=== PATIENT | female | born 1960 | race Caucasian/White ===

== ENCOUNTER 2019-08-27 11:40 | Outpatient (CLI) | payer OTHER, SELFPAY ==
--- NOTE | ~2019-08-27 | US_ITS ---
EXAMINATION: US venous doppler [facility] DATE: 08/27/2019 12:27 INDICATION: Left lower limb pain TECHNIQUE: [place] scale images without and with compression and Doppler images of the left lower extrem ity veins were obtained. COMPARISON: None FINDINGS: The left common femoral vein, profunda femoral vein, femoral vein, popliteal vein, peroneal trunk, posterior tibial veins, and greater saphenous vein are patent. IMPRESSION: 1. Patent left lower extremity veins. No evidence of deep venous thrombosis. Reviewed, dictated and finalized at location A.
== END 2019-08-27 11:41 | disposition home or self-care (01) ==
PROVIDERS: PCP Family Medicine; Visit Provider Family Medicine
DX: M79.662 Pain in left lower leg (principal)
CPT/HCPCS: 93971

== ENCOUNTER 2020-02-23 16:00 | Observation (INO) | payer OTHER, SELFPAY ==
--- NOTE | ~2020-02-23 | XR_ITS ---
EXAMINATION: XR retrograde pyelo w/stent LT EXAM DATE: 02/24/2020 13:00 INDICATION: TECHNIQUE: Fluoroscopy used during XR retrograde pyelo w/stent LT performed by Dr. Kai bolton MD. The DAP for this procedure was 509 radcm2 FINDINGS: Initial image demonstrates large calcific density projecting over the left ureterovesicula r junction, which was not identified following placement of the double-J ureteral stent. The left ure ter was cannulated, injected. There is severe left-sided hydroureter and mild to moderate hydronephro sis. Correlate with procedure note. IMPRESSION: Fluoroscopy used during XR retrograde pyelo w/stent LT. Reviewed, dictated and finalized at location B. IFIED PHYSICIAN'S ASSISTANT
--- NOTE | ~2020-02-23 | CT_ITS ---
EXAMINATION: CT abdomen pelvis wo con DATE: 02/23/2020 17:07 INDICATION: Flank pain. History of stones. TECHNIQUE: Computed tomography (CT) of the abdomen and pelvis was performed without intravenous contr ast. The dose-length product was 214.49 mGy-cm. Automated exposure control and iterative reconstructi on technique were employed. COMPARISON: None. FINDINGS: Lung bases are unremarkable. No significant pleural or pericardial effusion. Heart size is normal. There is an 8 x 7 mm. Distal left ureteral stone with moderate-severe left hydroureteronephro sis. There is left perinephric edema. Bowel gas pattern nonobstructive. Bladder is decompressed. Ther e is a fat-containing umbilical hernia. No free air or free fluid. The liver, spleen, pancreas, adrenal glands and right kidney are unremarkable. No acute osseous abnor mality. IMPRESSION: 1. 8 mm distal left ureteral stone with moderate-severe hydroureteronephrosis. Reviewed, dictated and finalized at location A. RAFT REFUELLER
[2020-02-23 16:01] VITALS: BP 135/69; PULSE 90; RESP 16; TEMP 36.3; O2SAT 96
--- NOTE | 2020-02-23 16:39 | ED.BACK ---
HPI - Back Pain/Injury General Chief Complaint: Back Pain/Injury Stated Complaint: kidney stone Time Seen by Provider: 02/23/20 16:39 Source: patient Mode of arrival: ambulatory Limitations: no limitations History of Present Illness HPI Narrative: Patient is a 59-year-old female who presents for evaluation of left flank pain. Acute onset today while the patient was at work described as sharp, stabbing in nature associated with nausea, vomiting. Pain is currently colicky in nature, more severe without radiation. No associated chest pain or shortness of breath. No fever or chills. No noticeable hematuria. Patient states she does have a history of nephrolithiasis. She denies any dysuria. No upper abdominal pain. She denies recent fall or injury. Related Data Allergies Allergy/AdvReac Type Severity Reaction Status Date / Time No Known Allergies Allergy Verified 01/27/20 08:38 Review of Systems Review of Systems: Narrative: CONSTITUTIONAL: Denies fever, chills, or sweats. ENT: Denies rhinorrhea, congestion, sore throat, or otalgia. CARDIOVASCULAR: Denies chest pain, palpitations, or edema. RESPIRATORY: Denies cough or dyspnea. GASTROINTESTINAL: Denies abdominal pain, reports nausea and vomiting GENITOURINARY: Denies dysuria or hematuria. Reports left flank pain. SKIN: Denies rash or itching. MUSCULOSKELETAL: Denies back pain, joint pain, or myalgia. NEUROLOGIC: Denies headache, numbness, or weakness. [facility] Past Medical History Medical History Dyslipidemia 12/18/2017 Essential (primary) hypertension 12/18/2017 Nephrolithiasis Prediabetes Surgical History Surgical History Hx of section (~1979) 1990 [place] teeth extracted (~1981) Family History Family History Sibling , Descending artery was blocked Heart attack Other Family history of aortic aneurysm Family history of coronary artery disease Hypertension Social History Social History Smoking status: Never smoker Second hand tobacco smoke exposure: No Alcohol intake: current Substance use: never Substance use type: does not use Gender identity (if verbalized by the patient): Female Exam Narrative: Exam Narrative: GENERAL: Awake, alert, conversant, uncomfortable appearing HEAD: Normocephalic, atraumatic. EYES: PERRLA and EOMI. ENT: Nares clear, no rhinorrhea or epistaxis. Mucous membranes moist. NECK: Supple. CHEST: No respiratory distress, breathing even and non labored HEART: Regular rate, sinus rhythm ABDOMEN:Non distended, non tender, no reproducible tenderness on exam, no reproducible flank tenderness EXTREMITIES: Normal range of motion. No edema. SKIN: Warm, dry, no rash. NEURO:No focal deficits. Alert and oriented x3 Course Vital Signs Vital signs: Vital Signs Temperature 36.3 C L 02/23/20 16:01 Pulse Rate 90 02/23/20 16:01 Respiratory Rate 16 02/23/20 16:01 Blood Pressure 135/69 02/23/20 16:01 Pulse Oximetry 96 02/23/20 16:01 Temperature 36.3 C L 02/23/20 16:01 Pulse Rate 87 02/23/20 18:24 Respiratory Rate 18 02/23/20 18:24 Blood Pressure 131/72 02/23/20 18:24 Pulse Oximetry 100 02/23/20 18:24 MDM - Back Pain/Injury MDM Narrative Medical decision making narrative: Patient presented for evaluation of left flank pain, nausea and vomiting. At the end of assessment, ABCs are intact and vital signs are stable. Patient is quite uncomfortable appearing on exam, no reproducible tenderness. IV access obtained and labs are drawn. Patient was given IV fluids, antiemetic and pain medicine with some relief in her symptoms. Patient has mild leukocytosis. Creatinine is 1.1. No electrolyte derangement. Patient was some white blood cells present in the u
[2020-02-23 16:49] LABS: Basophils Percent Auto 0.3 % (0.2-1.2); Eosinophils Percent Auto 0.3 % (0-4.4); Hematocrit 36.9 % (37.0-47.0); Hemoglobin 12.4 g/dL (12.0-15.0); Immature Granulocyte Absolute 0.05 K/mm3 (0.00-0.031); Immature Granulocyte Percent A 0.4 % (0-0.5); Lymphocytes Absolute Auto 0.94 K/mm3 (0.9-3.2); Lymphocytes Percent Auto 7.9 % (18.3-44.2); Mean Corpuscular HGB Conc 33.6 g/dl (32-36); Mean Corpuscular Hemoglobin 30.1 pg (26-34); Mean Corpuscular Volume 89.6 fl (80-100); Mean Platelet Volume 10.1 fl (7.4-10.4); Monocytes Absolute Auto 0.5 K/mm3 (0.1-0.6); Monocytes Percent Auto 3.8 % (2.6-8.5); Neutrophils Absolute Auto 10.3 K/mm3 (1.3-6.7); Neutrophils Percent Auto 87.3 % (45.5-73.1); Platelet Count Result 257 k/mm3 (150-375); Red Blood Count 4.12 M/mm3 (4.2-5.4); Red Cell Distribution Width 12.3 % (11.5-14.5); White Blood Count 11.9 K/mm3 (4.5-10.0)
[2020-02-23] MEDS: SODIUM CHLORIDE 0.9% IV 1,000 ML 999 ML IV CONT (16:52)
[2020-02-23] MEDS: ONDANSETRON INJ 4 MG/2 ML VIAL IV PUSH (16:54)
[2020-02-23 16:55] LABS: Anion Gap 8 mmol/L (8-16); Blood Urea Nitrogen 28 mg/dL (7-17); Calcium 9.1 mg/dL (8.4-10.2); Carbon Dioxide 29 mmol/L (22-30); Chloride 103 mmol/L (98-107); Estimated CRCL calculation 48 ml/min; Estimated Glomerular Filt Rate 51; Glucose 167 mg/dL (65-105); Potassium 3.6 mmol/L (3.4-5.0); Sodium 140 mmol/L (137-145)
[2020-02-23] MEDS: MORPHINE SULFATE (*CRX) 4 MG/ML INJ IV PUSH ×2 (16:55→22:23)
[2020-02-23 16:56] LABS: Add Urine Microscopic? YES; Appearance Urine Clear (Clear); Bacteria Urine Trace /hpf; Bilirubin Urine Negative (Negative); Color Urine Yellow (Yellow); Glucose Urine UA Negative (Negative); Ketones Urine Negative (Negative); Leukocyte Esterase Ur Trace LEU/UL (Negative); Mucus Urine Rare /lpf; Nitrate Urine Negative (Negative); Protein Urine Negative (Negative); Squamous Epithelial Cell Urine Many /hpf (Few); Urobilinogen Urine Negative mg/dL (<2.0)
[2020-02-23 17:00] LABS: Blood Urine Negative (Negative)
[2020-02-23] MEDS: KETOROLAC 15 MG/ML VIAL (*BKC) IV PUSH (18:15)
[2020-02-23 18:24] VITALS: BP 131/72; PULSE 87; RESP 18; O2SAT 100
--- NOTE | 2020-02-23 19:53 | ADMGEN ---
This patient, Jazzmine Keyes, was admitted to Medical Room 247-. Patient/family oriented to hospital policies and general routines including ID bracelet, bed and alarms, visiting hours, pain management, procedures, bathroom and other care routines, personal items, smoking policy, room service/diet, and visiting hours. Information on how to activate the Rapid Response Team has been discussed. Patient/Family are encouraged to report perceived risks to care and to ask questions if they do not understand what they are told or what they should do.
[2020-02-23 19:58] VITALS: BP 117/67; PULSE 78; RESP 16; TEMP 36.9; O2SAT 98; BMI 26.6
[2020-02-23] MEDS: SODIUM CHLORIDE 0.9% IV 1,000 ML 125 ML IV CONT (20:15)
[2020-02-23 21:53] VITALS: BP 119/66; PULSE 67; RESP 16; TEMP 36.8; O2SAT 99
[2020-02-24] VITALS (8 sets, daily range): BP systolic 90–123; BP diastolic 51–73; PULSE 58–108; RESP 8–17; TEMP 36.2–37.1; O2SAT 95–100
[2020-02-24] MEDS: ONDANSETRON INJ 4 MG/2 ML VIAL IV PUSH (00:37)
[2020-02-24] MEDS: SODIUM CHLORIDE 0.9% IV 1,000 ML 125 ML IV CONT (04:16)
[2020-02-24 05:16] LABS: Basophils Percent Auto 0.1 % (0.2-1.2); Eosinophils Percent Auto 0.2 % (0-4.4); Hematocrit 30.7 % (37.0-47.0); Hemoglobin 9.9 g/dL (12.0-15.0); Immature Granulocyte Absolute 0.04 K/mm3 (0.00-0.031); Immature Granulocyte Percent A 0.4 % (0-0.5); Lymphocytes Percent Auto 14.5 % (18.3-44.2); Mean Corpuscular HGB Conc 32.2 g/dl (32-36); Mean Corpuscular Hemoglobin 29.4 pg (26-34); Mean Corpuscular Volume 91.1 fl (80-100); Mean Platelet Volume 10.1 fl (7.4-10.4); Monocytes Absolute Auto 0.6 K/mm3 (0.1-0.6); Monocytes Percent Auto 6.6 % (2.6-8.5); Neutrophils Percent Auto 78.2 % (45.5-73.1); Platelet Count Result 221 k/mm3 (150-375); Red Blood Count 3.37 M/mm3 (4.2-5.4); Red Cell Distribution Width 12.6 % (11.5-14.5)
[2020-02-24 05:31] LABS: Anion Gap 5 mmol/L (8-16); Blood Urea Nitrogen 29 mg/dL (7-17); Calcium 7.7 mg/dL (8.4-10.2); Carbon Dioxide 28 mmol/L (22-30); Chloride 106 mmol/L (98-107); Estimated CRCL calculation 35 ml/min; Estimated Glomerular Filt Rate 36; Glucose 177 mg/dL (65-105); Sodium 139 mmol/L (137-145)
--- NOTE | 2020-02-24 10:16 | WPDANESEPPF ---
Anes - Initial Pre Proc Eval Procedure: Operation Date: 02/24/20 12:00 Proposed Procedures p Cystoscopy, Left Retrograde Pyelogram, Left Ureteroscopy with Stone Extraction and Stent Placement - Kai Berg MD s Holmium Laser Procedure - Kai Berg MD Date/Time: 02/24/20 10:16 Surgeon: Demetri Castillo MD Pre Op Diagnosis: Left ureteral stone, renal colic Patient Data Age: 59 Gender: F Height: 1.7 m Weight: 77 kg Last Vital Signs Temp 36.7 C 02/24/20 06:00 Pulse 63 02/24/20 06:00 Resp 16 02/24/20 06:00 BP 94/55 L 02/24/20 06:00 Pulse Ox 96 02/24/20 06:00 Allergies Allergy/AdvReac Type Severity Reaction Status Date / Time No Known Allergies Allergy Verified 01/27/20 08:38 Home Medications Medication Instructions Recorded Confirmed Type atorvastatin 20 mg tablet 20 mg PO .QHS #90 tablet 01/27/20 02/23/20 Rx lisinopril 10 1 tablet PO DAILY #90 tablet 01/27/20 02/23/20 Rx mg-hydrochlorothiazide 12.5 mg tablet Laboratory Tests 02/23/20 02/23/20 02/23/20 16:33 16:33 16:33 WBC 11.9 K/mm3 H K/mm3 (4.5-10.0) RBC 4.12 M/mm3 L M/mm3 (4.2-5.4) Hgb 12.4 g/dL g/dL (12.0-15.0) Hct 36.9 % L % (37.0-47.0) MCV 89.6 fl fl (80-100) MCH 30.1 pg pg (26-34) MCHC 33.6 g/dl g/dl (32-36) RDW 12.3 % % (11.5-14.5) Plt Count 257 k/mm3 k/mm3 (150-375) MPV 10.1 fl fl (7.4-10.4) Immature Gran % (Auto) 0.4 % % (0-0.5) Neut % (Auto) 87.3 % H % (45.5-73.1) Lymph % (Auto) 7.9 % L % (18.3-44.2) [place]ward % (Auto) 3.8 % % (2.6-8.5) Eos % (Auto) 0.3 % % (0-4.4) Baso % (Auto) 0.3 % % (0.2-1.2) Lymph # (Auto) 0.94 K/mm3 K/mm3 (0.9-3.2) [place] # (Auto) 0.5 K/mm3 K/mm3 (0.1-0.6) Eos # (Auto) 0.0 K/mm3 K/mm3 (0-0.3) Baso # (Auto) 0.0 K/mm3 K/mm3 (0.0-0.1) Abs Immat Gran (auto) 0.05 K/mm3 H K/mm3 (0.00-0.031) Absolute Neuts (auto) 10.3 K/mm3 H K/mm3 (1.3-6.7) Absolute Nucleated RBC 0.0 K/mm3 K/mm3 (0.0-0.012) Nucleated RBC % 0.0 % % (0.0-0.2) Sodium 140 mmol/L mmol/L (137-145) Potassium 3.6 mmol/L mmol/L (3.4-5.0) Chloride 103 mmol/L mmol/L (98-107) Carbon Dioxide 29 mmol/L mmol/L (22-30) Anion Gap 8 mmol/L mmol/L (8-16) BUN 28 mg/dL H mg/dL (7-17) Creatinine 1.10 mg/dL H mg/dL (0.7-1.0) Estim Creat Clear Calc 48 ml/min ml/min Estimated GFR 51 L (59 - ) Glucose 167 mg/dL H mg/dL (65-105) Calcium 9.1 mg/dL mg/dL (8.4-10.2) Urine Color Yellow (Yellow) Urine Appearance Clear (Clear) Urine pH 7.0 (5.0-9.0) Ur Specific Dewitt 1.020 (1.001-1.035) Urine Protein Negative mg/dL mg/dL (Negative) Urine Glucose (UA) Negative mg/dL mg/dL (Negative) Urine Ketones Negative mg/dL mg/dL (Negative) Ur Blood (Man) Negative (Negative) Urine Nitrate Negative (Negative) Urine Bilirubin Negative (Negative) Urine Urobilinogen Negative mg/dL mg/dL (<2.0) Leukocyte Esterase Rfl Trace KAREN/UL H KAREN/UL (Negative) Urine RBC 11-20 /hpf H /hpf (0-2) Urine WBC 7-9 /hpf H /hpf Ur Squamous Epith Cells Many /hpf H /hpf (Few) Urine Bacteria Trace /hpf /hpf Urine Mucus Rare /lpf /lpf 02/24/20 02/24/20 04:58 04:58 WBC 9.0 K/mm3 K/mm3 (4.5-10.0) RBC 3.37 M/mm3 L M/mm3 (4.2-5.4) Hgb 9.9 g/dL L g/dL (12.0-15.0) Hct 30.7 % L % (37.0-47.0) MCV 91.1 fl fl (80-100) MCH 29.4 pg pg (26-34) MCHC 32.2 g/dl g/dl (32-36) RDW 12.6 % % (11.5-14.5) Plt C
--- NOTE | 2020-02-24 10:40 | PC.NURSE ---
pt to surgery via stretcher, doing well no c/o at this time
[2020-02-24] MEDS: LACTATED RINGERS 1,000 ML 30 ML IV CONT (10:54)
--- NOTE | 2020-02-24 10:59 | WPDURCON ---
Assessment and Plan Assessment and plan (1) Left ureteral calculus: Code(s): N20.1 - Calculus of ureter Status: Acute Assessment and Plan: Obtain consent: Cystoscopy, left ureteroscopy with stone extraction, possible stent placement, left retrograde pyelogram, possible holmium laser. Keep NPO. Plan to go to the OR this afternoon. (2) JUNE (acute kidney injury): Code(s): N17.9 - Acute kidney failure, unspecified Status: Acute Assessment and Plan: Secondary to obstructive stone, will likely resolve once stone is removed and stent is placed. Urology Consult Note HPI Date Seen: 02/24/20 Requesting Physician: Demetri Castillo MD Primary Care Provider: Kaitlyn Moyer MD Consult Narrative Narrative: Jazzmine Keyes is a 59 year old female who presented to the ER last night for new onset of left flank pain that radiates to the LLQ. She was at work yesterday and suddenly developed the pain, nausea and vomiting. She denies chills, fever, dysuria,frequency,urgency or hematuria. She has a history of passing one prior stone. CT scan diagnosed an 8mm left distal ureteral stone with moderate to severe hydronephrosis. WBC is 9.0, creatinine is 1.50, she is afebrile and urine culture is pending but UA/exam do not indicate infection. Review of Systems Cardiovascular: Cardiovascular: Denies chest pain Respiratory: Respiratory: Reports no additional respiratory complaints Gastrointestinal: Gastrointestinal: Reports abdominal pain, Reports nausea and Reports vomiting Genitourinary: Genitourinary: Denies hematuria, Denies dysuria, Reports pelvic pain and Reports flank pain PMFSH Past Medical History Medical History Dyslipidemia 12/18/2017 Essential (primary) hypertension 12/18/2017 Nephrolithiasis Prediabetes Surgical History Surgical History Hx of section (~1979) 1990 [place] teeth extracted (~1981) Family History Family History Sibling , Descending artery was blocked Heart attack Other Family history of aortic aneurysm Family history of coronary artery disease Hypertension Social History Social History Smoking status: Never smoker Second hand tobacco smoke exposure: No Alcohol intake: never Substance use: never Substance use type: does not use Gender identity (if verbalized by the patient): Female Sexual Orientation (if Verbalized by the Patient): Straight or Heterosexual Spiritual care concerns: No Meds Home Medications and Allergies Home Medications Medication Instructions Recorded Confirmed Type atorvastatin 20 mg tablet 20 mg PO .QHS #90 tablet 01/27/20 02/23/20 Rx lisinopril 10 1 tablet PO DAILY #90 tablet 01/27/20 02/23/20 Rx mg-hydrochlorothiazide 12.5 mg tablet Allergies Allergy/AdvReac Type Severity Reaction Status Date / Time No Known Allergies Allergy Verified 01/27/20 08:38 Vital Signs Vital Signs - 24 hr 02/23/20 16:01 02/23/20 18:24 02/23/20 19:58 Temperature 97.3 F L 98.5 F Pulse Rate 90 87 78 Respiratory Rate 16 18 16 Blood Pressure 135/69 131/72 117/67 Pulse Oximetry 96 100 98 02/23/20 21:53 02/24/20 02:00 02/24/20 06:00 Temperature 98.3 F 97.7 F 98.1 F Pulse Rate 67 58 L 63 Respiratory Rate 16 14 16 Blood Pressure 119/66 90/51 L 94/55 L Pulse Oximetry 99 96 96 02/24/20 10:50 Temperature 97.4 F L Pulse Rate 74 Respiratory Rate 16 Blood Pressure 108/54 L Pulse Oximetry 99 Exam Resp: Effort & Inspection: normal respiratory effort Cardio: Rate: regular rate GI: GI Palp: Yes Soft to palpation and Yes Tenderness to palpation present (GI) (LLQ) : General: Yes CVA tenderness on the left Extrem: General: no edema Results
--- NOTE | 2020-02-24 11:52 | WPDHPUPDATE1 ---
History and Physical Update Update Date/Time: 02/24/20 11:52 History and Physical has been reviewed, including an updated exam of the patient. There are NO changes in the patient's condition. Risks, benefits, and alternatives have been discussed and questions answered. Patient agrees to proceed with procedure. Proceed with cysto, left retrograde, left ureteroscopy, possible laser, stone extraction and stent placement.
--- NOTE | 2020-02-24 12:08 | SUR.PREOP ---
1200; ASKED DR KOCH REGARDING PREOP ANTIBIOTIC. PT WAS GIVEN ROCEPHIN ON THE FLOOR. NO ANTIBIOTICS ORDERED.
[2020-02-24] MEDS: LIDOCAINE HCL 2% GEL UROJET 10 ML PKG MUCOUS MEM (12:13)
--- NOTE | 2020-02-24 12:58 | P.OP_ITS ---
Procedure Note - Detailed Date of procedure: 02/24/20 Pre-op diagnosis: Left ureteral stone, renal colic Post-op diagnosis: same Procedure performed: Cystoscopy, left retrograde pyelogram, left ureteral dilation, left ureteroscopy with holmium laser, stone extraction, left ureteral stent placement 4.8 [place] contour. Description of procedure: Patient is taken to the operative suite and correctly identified. Once anesthesia was obtained she was placed in a dorsal lithotomy position and prepped and draped usual sterile fashion. Twenty-two [place]ib[place]ian scope inserted the the bladder there is no tumors noted. The left orifice was cannulated with a guidewire. Was difficult to get it past the level of the iliac vessels. We placed a Har[place]on over this and did a pyelogram. Extremely dilated ureter and tortuous somewhat. We advanced a angled Glidewire through the Harbeson up to the kidney. We then exchanged out for a Synergy Hub wire. Rigid ureteral scope was inserted the stone was visualized. It was too large to retrieve 1 piece. Using holmium laser fiber we fragmented into multiple small pieces and sent the largest ones for analysis. Reinspection revealed no significant residual ureteral calculi. Given the amount of hydronephrosis some manipulation we did place a 4.8 [place] contour stent with the proximal end coiled in the renal pelvis and the distal bladder. Bladder was drained 2% viscous lidocaine was inserted urethra and patient is taken recovery stable condition. She will follow up in 1-2 weeks for stent removal. Anesthesia: GLMA Surgeon: Kai Berg MD Drains: Yes Packing: No Pathology: yes Complications: No immediate complications Condition: stable Disposition: PACU
--- NOTE | 2020-02-24 13:56 | PC.NURSE ---
returned from surgery via stretcher, able to ambulate to bathroom with only a SBA
--- NOTE | 2020-03-22 15:52 | PM.DS ---
DS: Admitting Diagnosis Admitting Diagnosis Admitting Diagnosis: Left Ureteral Stone DS: Summary Hospital Course Hospital Course: Left Ureteral Stone Extraction Time Spent with Patient Time attestation: Pre-Op Diagnosis: Left Ureteral Stone Post Op Diagnosis: Left Ureteral Stone Patient was admitted from the ER d/t a left ureteral stone and uncontrolled pain on 02/23/2020. She then underwent the following procedure the next day on 02/24/2020: Cystoscopy, left retrograde pyelogram, left ureteral dilation, left ureteroscopy with holmium laser, stone extraction, left ureteral stent placement with Dr. Sofia Berg. She tolerated the procedure well, was then transferred to recovery in stable condition. She was then discharged home with a regular diet, activity as tolerated, she resumes all previous home medications including nitrofurantoin and Oxybutynin. Exam Resp: Effort & Inspection: normal respiratory effort Cardio: Rate: regular rate GI: GI Palp: Yes Soft to palpation and Yes Tenderness to palpation present (GI) : General: Yes CVA tenderness on the left Extrem: General: no edema DS: Data Data Completed and Pending Completed studies during hospitalization: Pending at discharge 02/24/20 12:28 Surgical [PTH] Routine Discharge Plan Discharge Attending physician on discharge: Kai Berg Consulting providers: Edouard Crespo ; Navid Santillan ; Clara Del Real ; Kai Berg Discharging Clinician: Clara Del Real Anticipated Discharge Date/Time: 02/24/20 15:19 Patient Disposition: Home, Self-Care Activity: july shower Diet: as tolerated Discharge Instructions: Call the office to schedule a stent removal in 1-[address] Berg. Call the office or go to the ER if a fever of >102 develops, or symptoms of a UTI develop. Bloody, cloudy urine is expected with a stent in as well as some discomfort from the stent intermittently. Ok to take Tylenol or Ibuprofen for pain PRN with the Oxybutynin if both are needed. Patient Instructions: Antibiotic Form Stand Alone Forms: General Discharge Information Follow-up/Referrals: Kai Berg MD [Physician] - Discharge Medications: New oxybutynin chloride 5 mg tablet 5 mg PO TID Qty: 60 RF: 0 nitrofurantoin macrocrystal 100 mg capsule 100 mg PO Q12H Qty: 14 RF: 0 Continued atorvastatin 20 mg tablet 20 mg PO .QHS Qty: 90 RF: 3 lisinopril-hydrochlorothiazide 10-12.5 mg tablet 1 tablet PO DAILY Qty: 90 RF: 3 Date of admission: 02/23/20 18:27 Primary Care Provider: Kurt Moyer Admitting Provider: Demetri Castillo Attending physician on admission: Demetri Castillo Condition: Stable
== END 2020-02-24 17:25 | disposition home or self-care (01) ==
LOC: ANHED 18:30 → ANH2MED 19:30
PROVIDERS: Emergency Medicine; Urology; Admitting Provider Urology; Emergency Provider Emergency Medicine; PCP Family Medicine; Visit Provider Urology
PROC: (CPT 52352; principal; 2020-02-24 12:00)
PROC: (CPT 52356; 2020-02-24 12:00)
DX: N13.2 Hydronephrosis with renal and ureteral calculous obstruction (principal); N17.9 Acute kidney failure, unspecified; I10 Essential (primary) hypertension; E78.5 Hyperlipidemia, unspecified; R73.03 Prediabetes
CPT/HCPCS: 52356; 36415; 74176; 74420; 80048; 81001; 82365; 85025; 87086; 87088; 88300; 96361; 96365; 96367; 96374; 96375; 96376; 99285; C1758; C1769; G0378; J0131; J0696; J1100; J1885; J2270; J2405; J2704; J7030; J7120; Q9966

== ENCOUNTER 2020-11-03 18:49 | Observation (INO) | payer OTHER, SELFPAY ==
[2020-11-03] VITALS (16 sets, daily range): BP systolic 113–158; BP diastolic 65–101; PULSE 81–122; RESP 12–21; TEMP 36.6; O2SAT 94–98
--- NOTE | ~2020-11-03 | CT_ITS ---
EXAMINATION: CT soft tissue neck wo con EXAM DATE: 11/04/2020 08:43 INDICATION: Angioedema, Large Tonsils. TECHNIQUE: Spiral CT of the neck was performed without contrast. Axial, coronal and sagittal images were reviewed. The dose-length product (DLP) for this examination was 498.18 mGy-cm. The exposure was tailored according to patient size (auto mA exposure control), and iterative reconstruction (ASIR ) was used as additional dose reduction technique. There is no prior study for comparison. FINDINGS: Epiglottis is normal in thickness. The thyroid gland is unremarkable. The submandibular and parotid glands are symmetric. There is no cervical lymphadenopathy. There are no masses identi fied. The superior mediastinum is unremarkable. The airway is unremarkable. Parapharyngeal and pre-glottic fat planes are preserved. Limited evaluation of cervical vessels on this noncontrast s tudy. The orbits are unremarkable. Visualized sinuses and mastoid air cells are well aerated. L vania apices unremarkable. There is moderate midcervical spondylosis. IMPRESSION: Unremarkable CT neck examination. Reviewed, dictated and finalized at location B.
[2020-11-03] MEDS: methylPREDNISolone SOD SUCC 125 MG VIAL IV PUSH (19:03)
[2020-11-03] MEDS: FAMOTIDINE 20 MG/2 ML VIAL 40 MG IV PUSH (19:04)
[2020-11-03] MEDS: SODIUM CHLORIDE 0.9% IV 1,000 ML 150 ML IV CONT (19:05)
--- NOTE | 2020-11-03 21:36 | ED.GENADULT ---
HPI - General Adult General Chief complaint: Dental/Oral Stated complaint: swollen tongue Time Seen by Provider: 11/03/20 18:55 Source: patient Mode of arrival: EMS Limitations: no limitations History of Present Illness HPI narrative: 60-year-old with a history of hypertension on lisinopril for past 10 years here with complaints of tongue and lip swelling. Patient states that it started about 12:00 this afternoon patient states that she went to urgent care and was later referred here. Patient did receive epinephrine and Benadryl at urgent care. Upon arrival patient denies any shortness of breath still complains of tongue swelling. Onset (ago): hour(s) (5) Location: mouth (Tongue swelling) Exacerbating factors: none Associated symptoms: denies other symptoms Treatments prior to arrival: other (Benadryl and epinephrine) Related Data Allergies Allergy/AdvReac Type Severity Reaction Status Date / Time No Known Allergies Allergy Verified 06/30/20 11:01 Review of Systems Review of Systems: All systems reviewed & are unremarkable except as noted in HPI and below Constitutional: Constitutional: Reports no additional constitutional complaints Eyes: Eyes: Reports no additional eye complaints ENT: Reports as per HPI Cardiovascular: Cardiovascular: Reports no additional cardiovascular complaints Respiratory: Respiratory: Reports no additional respiratory complaints Gastrointestinal: Gastrointestinal: Reports no additional gastrointestinal complaints Musculoskeletal: Musculoskeletal: Reports no additional musculoskeletal complaints Integumentary/Breasts: Skin/Breast: Reports system reviewed and no additional complaints, except as docu Neurologic: Reports system reviewed and no additional complaints, except as documented Psychiatric: Psychiatric: Reports no additional psychiatric complaints Endocrine: Endocrine: Reports no additional endocrine complaints [facility] Past Medical History Medical History Dyslipidemia 12/18/2017 Essential (primary) hypertension 12/18/2017 Left ureteral calculus 02/2020 Nephrolithiasis Prediabetes Surgical History Surgical History History of cystoscopy 02/21 - for left ureteral stone extraction Hx of section (~1979) 1990 [place] teeth extracted (~1981) Family History Family History Sibling , Descending artery was blocked Heart attack Other Family history of aortic aneurysm Family history of coronary artery disease Hypertension Social History Social History Smoking status: Never smoker Second hand tobacco smoke exposure: No Alcohol intake: never Alcohol use details: consumes 1 glass of wine weekly Substance use: never Substance use type: does not use Gender identity (if verbalized by the patient): Female Sexual Orientation (if Verbalized by the Patient): Straight or Heterosexual Spiritual care concerns: No Exam Narrative: GENERAL: Well-appearing, well-nourished, and in no acute distress. HEAD: Normocephalic, atraumatic. EYES: PERRLA and EOMI. ENT: Nares clear, tongue is markedly swollen no obvious drooling at this time she is able to maintain her airway and secretions. NECK: Supple. CHEST: Clear to auscultation. No respiratory distress. HEART: Regular rate and rhythm. No murmur heard. Normal peripheral pulses. ABDOMEN: Soft, nontender, nondistended, normal active bowel sounds. EXTREMITIES: Normal range of motion. No edema. SKIN: Warm, dry, no rash. NEURO: No focal deficits. Alert and oriented x3. PSYCH: Normal mood and affect. Course Course Emergency Course: I have given IV Pepcid and Solu-Medrol here in the ER observed her for approximately 4 hours her swelling has slightly improved she is now able to talk. No respi
[2020-11-03 21:37] LABS: Basophils Absolute Auto 0.1 K/mm3 (0.0-0.1); Basophils Percent Auto 0.4 % (0.2-1.2); Eosinophils Percent Auto 0.1 % (0-4.4); Hematocrit 40.5 % (37.0-47.0); Hemoglobin 13.5 g/dL (12.0-15.0); Immature Granulocyte Absolute 0.15 K/mm3 (0.00-0.031); Immature Granulocyte Percent A 0.8 % (0-0.5); Lymphocytes Percent Auto 6.1 % (18.3-44.2); Mean Corpuscular HGB Conc 33.3 g/dl (32-36); Mean Corpuscular Hemoglobin 29.7 pg (26-34); Mean Corpuscular Volume 89.2 fl (80-100); Mean Platelet Volume 9.6 fl (7.4-10.4); Monocytes Absolute Auto 0.3 K/mm3 (0.1-0.6); Monocytes Percent Auto 1.6 % (2.6-8.5); Neutrophils Absolute Auto 16.3 K/mm3 (1.3-6.7); Platelet Count Result 260 k/mm3 (150-375); Red Blood Count 4.54 M/mm3 (4.2-5.4); Red Cell Distribution Width 12.4 % (11.5-14.5); White Blood Count 17.9 K/mm3 (4.5-10.0)
[2020-11-03 21:46] LABS: Anion Gap 19 mmol/L (8-16); Blood Urea Nitrogen 20 mg/dL (7-17); Calcium 9.1 mg/dL (8.4-10.2); Carbon Dioxide 20 mmol/L (22-30); Chloride 101 mmol/L (98-107); Estimated Glomerular Filt Rate > 60; Glucose 301 mg/dL (65-110); Potassium 3.6 mmol/L (3.4-5.0); Sodium 140 mmol/L (137-145)
--- NOTE | 2020-11-03 21:58 | PM.IMHP ---
H&P: HPI History of Present Illness Date/Time: 11/03/20 21:58 Chief Complaint: TONGUE SWELLING Narrative: THIS IS A 60-YEAR-OLD FEMALE WITH PAST MEDICAL HISTORY SIGNIFICANT FOR DYSLIPIDEMIA, HYPERTENSION. PATIENT PRESENTED TODAY TO THE EMERGENCY ROOM AFTER SHE WAS AT WORK AND NOTICED THAT HE WAS DIFFICULT FOR HER TO SPEAK NOTICEDS HER TONGUE SHOWS WAS SWOLLEN AND WENT TO THE URGENT CARE WHILE THERE SHE WAS SEEN AND EVALUATED AND EMS WAS CALLED AND PATIENT WAS RUSHED TO THE EMERGENCY ROOM. PATIENT TAKES LISINOPRIL PART OF HER HOME MEDICATIONS. SHE HAS BEEN IN HER USUAL STATE OF HEALTH IS THE 1ST TIME SOMETHING LIKE THIS HAPPENS TO HER SHE DENIES ANY SHORTNESS OF BREATH ,COUGH, DYSPHAGIA, ODYNOPHAGIA, DIFFICULTY HANDLING SECRETIONS, WHEEZING ,SPUTUM PRODUCTION, CHEST PAIN ,PALPITATIONS, LIGHTHEADEDNESS, DIZZINESS, VISION CHANGES. PRELIMINARY WORKUP WAS ESSENTIALLY NONREVEALING. AT THE TIME OF MY VISIT PATIENT NOTED THAT HER TONGUE SWELLING AND HER SPEECH WERE MUCH IMPROVED. Review of Systems Review of Systems: TONGUE SWELLING Constitutional: Constitutional: Denies chills, Denies fatigue and Denies fever(s) Eyes: Eyes: Denies change in vision ENT: Denies dysphagia, Denies nasal congestion, Denies nasal discharge, Denies nasal obstruction and Denies odynophagia Cardiovascular: Cardiovascular: Denies chest pain, Denies irregular heart rhythm, Denies claudication, Denies leg edema, Denies lightheadedness, Denies radiating jaw, neck or arm pain, Denies palpitations and Denies dyspnea on exertion Respiratory: Respiratory: Denies cough and Denies dyspnea Gastrointestinal: Gastrointestinal: Denies abdominal pain, Denies dyspepsia, Denies heartburn, Denies nausea and Denies vomiting Genitourinary: Genitourinary: Reports no additional female genitourinary complaints Musculoskeletal: Musculoskeletal: Reports no additional musculoskeletal complaints Integumentary/Breasts: Skin/Breast: Reports system reviewed and no additional complaints, except as docu Neurologic: Reports system reviewed and no additional complaints, except as documented Psychiatric: Psychiatric: Reports no additional psychiatric complaints Endocrine: Endocrine: Reports no additional endocrine complaints Hematologic/Lymphatic: Hematologic/Lymphatic: Reports no additional hematologic/lymphatic complaints Allergic/Immunologic: Allergic/Immunologic: Reports no additional allergic/immunologic complaints PMFSH Past Medical History Medical History Dyslipidemia 12/18/2017 Essential (primary) hypertension 12/18/2017 Left ureteral calculus 02/2020 Nephrolithiasis Prediabetes Surgical History Surgical History History of cystoscopy 02/21 - for left ureteral stone extraction Hx of section (~1979) 1989 [place] teeth extracted (~1981) Family History Family History (Updated 11/04/20 @ 00:28 by Tosha Gautam RN) Sibling , Descending artery was blocked Heart attack Family history of coronary artery disease Hypertension Mother Family history of aortic aneurysm Dementia Father FH: CABG (coronary artery bypass surgery) Social History Social History Smoking status: Never smoker Second hand tobacco smoke exposure: No Alcohol intake: never Alcohol use details: consumes 1 glass of wine weekly Substance use: never Substance use type: does not use Gender identity (if verbalized by the patient): Female Sexual Orientation (if Verbalized by the Patient): Straight or Heterosexual Spiritual care concerns: No Meds Home Medications and Allergies Home Medications Medication Instructions Recorded Confirmed Type atorvastatin 20 mg tablet 20 mg PO QHS #90 tablet 06/30/20 11/04/20 Rx lisinopril 10 1 tablet PO DAILY #90 tablet 06/30/20 11/04/20 Rx mg-hydrochlorothi
--- NOTE | 2020-11-03 23:05 | PC.NURSE ---
Swelling has decreased, patient able to speak in full sentences and reports it feels much better.
--- NOTE | 2020-11-03 23:43 | PC.NURSE ---
2316 report received from LOYD Chen.
[2020-11-04] VITALS: BP 110/62; PULSE 88; RESP 17; TEMP 36.9; O2SAT 95
[2020-11-04 00:02] VITALS: PULSE 88; RESP 14; O2SAT 97
--- NOTE | 2020-11-04 00:02 | ADMGEN ---
This patient, Jazzmine Keyes, was admitted to Intensive Care Unit-12 on 11/03/20 at 2345. Patient/family oriented to hospital policies and general routines including ID bracelet, bed and alarms, visiting hours, pain management, procedures, bathroom and other care routines, personal items, smoking policy, room service/diet, and visiting hours. Information on how to activate the Rapid Response Team has been discussed. Patient/Family are encouraged to report perceived risks to care and to ask questions if they do not understand what they are told or what they should do.
[2020-11-04 00:04] VITALS: BMI 22.6
[2020-11-04] MEDS: methylPREDNISolone SOD SUCC 125 MG VIAL 60 MG IV PUSH ×2 (00:47→06:18)
[2020-11-04] MEDS: diphenhydrAMINE HCl INJ 50 MG/ML VIAL 25 MG IV PUSH ×2 (00:47→06:18)
[2020-11-04 02:00] VITALS: BP 105/62; PULSE 78; RESP 13; O2SAT 92
[2020-11-04 04:00] VITALS: BP 109/65; PULSE 68; PULSE 73; RESP 14; TEMP 36.5; O2SAT 94
[2020-11-04] MEDS: SODIUM CHLORIDE 0.9% IV 1,000 ML 75 ML IV CONT (04:13)
[2020-11-04 06:00] VITALS: BP 106/65; PULSE 74; RESP 13; O2SAT 94
[2020-11-04 08:00] VITALS: BP 126/78; PULSE 100; PULSE 108; RESP 16; TEMP 36.5; O2SAT 98
[2020-11-04] MEDS: FAMOTIDINE 20 MG/2 ML VIAL IV PUSH (08:04)
--- NOTE | 2020-11-04 10:16 | WPDCNINT ---
Assessment and Plan Assessment and plan (1) Angioedema: Qualifiers: Encounter type: initial encounter Qualified Code(s): T78.3XXA - Angioneurotic edema, initial encounter Code(s): T78.3XXA - Angioneurotic edema, initial encounter Status: Acute Assessment and Plan: Secondary to lisinopril patient was admitted to ICU for airway monitoring she was treated with steroids Pepcid and Benadryl symptoms improved and patient appears to be at baseline CT soft tissue neck was done this morning which was unremarkable DC steroids Pepcid and Benadryl at this time (2) Essential (primary) hypertension: Code(s): I10 - Essential (primary) hypertension Status: Chronic Assessment and Plan: monitor and treat accordingly currently she is off of antihypertensives (3) Dyslipidemia: Code(s): E78.5 - Hyperlipidemia, unspecified Status: Chronic Assessment and Plan: resume Lipitor Additional Plan DVT prophylaxis - SCDs Nutrition - start regular diet transfer out of ICU today 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 Patient has been on lisinopril for close to 10 years she states that she has had at least 5 episodes where her trunk got sold up but resolved spontaneously and she never sought any treatment. Yesterday afternoon at work she started noticing swelling of right side of her tongue. This swelling extended to left side and she felt her throat was also swollen. Her voice was hoarse and she had some drooling. He did not had any shortness of breath or respiratory distress. Patient wentto urgent care where she was given epinephrine and transferred to [place] ER. Patient was given steroids Benadryl and Pepcid admitted to ICU for further monitoring. Lisinopril was discontinued this morning patient states she feels fine and her symptoms have completely resolved. She states her tongue and lip swelling is completely gone. She ate diet this morning without any difficulty. Her voice is back to baseline. And no drooling at this time. she denies any dental pain or sore throat. Fever shortness of breath or cough. He has received COVID vaccine. All other systems were reviewed and were negative Review of Systems Review of Systems: All systems reviewed & are unremarkable except as noted in HPI and below (HPI) PMFSH Past Medical History Medical History Dyslipidemia 12/18/2017 Essential (primary) hypertension 12/18/2017 Left ureteral calculus 02/2020 Nephrolithiasis Prediabetes Surgical History Surgical History History of cystoscopy 02/21 - for left ureteral stone extraction Hx of section (~1979) 1989 [place] teeth extracted (~1981) Family History Family History Sibling , Descending artery was blocked Heart attack Family history of coronary artery disease Hypertension Mother Family history of aortic aneurysm Dementia Father FH: CABG (coronary artery bypass surgery) Social History Social History Smoking status: Never smoker Second hand tobacco smoke exposure: No Alcohol intake: never Alcohol use details: consumes 1 glass of wine weekly Substance use: never Substance use type: does not use Gender identity (if verbalized by the patient): Female Sexual Orientation (if Verbalized by the Patient): Straight or Heterosexual Spiritual care concerns: No Meds Home Medications and Allergies Home Medications Medication Instructions Recorded Confirmed Type atorvastatin 20 mg tablet 20 mg PO QHS #90 tablet 06/30/20 11/04/20 Rx lisinopril 10 1 tablet PO SETH
--- NOTE | 2020-11-04 12:15 | PM.DS ---
DS: Admitting Diagnosis Admitting Diagnosis Angioedema DS: Discharge Diagnosis Discharge Diagnosis (1) Angioedema: Qualifiers: Encounter type: initial encounter Qualified Code(s): T78.3XXA - Angioneurotic edema, initial encounter Code(s): T78.3XXA - Angioneurotic edema, initial encounter Status: Acute Assessment and Plan: Angioedema presumed to be secondary to lisinopril The patient was admitted to ICU for airway monitoring; she was treated with steroids Pepcid and Benadryl. Her symptoms promptly improved and patient appears to be at baseline. CT soft tissue neck was done this morning which was unremarkable DC steroids Pepcid and Benadryl at this time (2) Essential (primary) hypertension: Code(s): I10 - Essential (primary) hypertension Status: Chronic Assessment and Plan: Patient was monitored and treat accordingly; while inpatient she she was maitained off of antihypertensive. She will be discharged on low dose diuretics and low dose calcium channel blockers as she will resume a regular diet. (3) Dyslipidemia: Code(s): E78.5 - Hyperlipidemia, unspecified Status: Chronic Assessment and Plan: resume Lipitor DS: Summary Hospital Course Hospital Course: This is a 60-year old lady with a past medical history including but not limited to HTN, dyslipidemia, who preseented to the emergency department after experiending difficulty speaking at work. Her tongue was swollen; she went to urgent care and was transferred to the ED by EMS. Patient takes lisinopril for years. On arrival there was no shotness of breath, difficulty swallowing. She was admitted to ICU for airway monitoring. She was started on benadryl and steroids. A CT scan of the neck was unremarkable. She was discharged home with instructions to avoid lisinopril and all ACEI in the future. Time Spent with Patient Time attestation: Total time spent providing and/or coordinating discharge services: 30 min/ Exam Narrative: GENERAL: The patient is alert and oriented, in no apparent distress. She is pleasant and conversant in full sentences. HEENT: Pupils are equally round and briskly reactive to light. Extraocular muscles are intact. Oral mucous membranes are moist without lesions. No tonsil swelling. NECK: The patient has no noted JVD. No adenopathy is appreciated. CHEST/LUNGS: Lungs are clear bilaterally without rhonchi, rales, or wheezes. There is no subcutaneous air appreciated. There is no tenderness to the chest wall. HEART: The patient has a regular rate and rhythm. No murmurs, rubs, or gallops are appreciated. Distal pulses are 2+. No carotid bruits appreciated. ABDOMEN: The patient?s abdomen is soft, nontender, and nondistended. Bowel sounds are positive. No organomegaly is appreciated. No masses are appreciated. EXTREMITIES: The patient has no peripheral edema. There is no focal long bone tenderness or deformity. SKIN: The patient?s skin is warm and dry, without rashes or lesions. PSYCHIATRIC: The patient has normal mental status and has an appropriate affect. NEUROLOGIC: The patient has 5/5 strength to the upper and lower extremities bilaterally. Sensation is intact throughout. Gait is within normal limits. Deep tendon reflexes are 2+ in all four extremities. There are no deficits to the cranial nerves. DS: Data Data Completed and Pending Labs on day of discharge: Labs from last 24 hours 11/03/20 11/03/20 21:32 21:32 WBC 17.9 H RBC 4.54 Hgb 13.5 D Hct 40.5 MCV 89.2 MCH 29.7 MCHC 33.3 RDW 12.4 Plt Count 260 MPV 9.6 Immature Gran % (Auto) 0.8 H Neut % (Auto) 91.0 H Lymph % (Auto) 6.1 L Clay % (Auto) 1.6 L Eos % (Auto) 0.1 Baso % (Auto) 0.4 Lymph # (Auto) 1.10 Clay # (Auto) 0.3 Eos # (Auto) 0.0 Baso # (Auto) 0.1 Abs Immat Gran (auto) 0.15 H Absolute Neuts (auto) 16.3 H Absolute Nucleated RBC 0.0 Nucleated RBC % 0.0 Sodium 140 Potassium 3.6
== END 2020-11-04 12:28 | disposition home or self-care (01) ==
LOC: ANHED 21:40 → ANHICU 11-04 04:38
PROVIDERS: Admitting Provider Internal Medicine; Emergency Provider Family Medicine; PCP Family Medicine; Visit Provider Internal Medicine
DX: T78.3XXA Angioneurotic edema, initial encounter (principal); I10 Essential (primary) hypertension; E78.5 Hyperlipidemia, unspecified; R73.03 Prediabetes
CPT/HCPCS: 36415; 70490; 80048; 85025; 96361; 96374; 96375; 96376; 99285; G0378; J1200; J2930; J7030

== ENCOUNTER 2021-01-08 08:04 | Emergency (ER) | payer OTHER, SELFPAY ==
[2021-01-08 08:11] VITALS: BP 162/101; PULSE 101; RESP 16; O2SAT 97
[2021-01-08] MEDS: methylPREDNISolone SOD SUCC 125 MG VIAL IV PUSH (08:26)
[2021-01-08] MEDS: FAMOTIDINE 20 MG/2 ML VIAL IV PUSH (08:26)
[2021-01-08] MEDS: diphenhydrAMINE HCl INJ 50 MG/ML VIAL 25 MG IV PUSH (08:26)
--- NOTE | 2021-01-08 08:32 | ED.ALLEREA ---
HPI - Allergic Reaction General Chief complaint: Allergic Reaction Stated complaint: allergic rxn Time Seen by Provider: 01/08/21 08:09 History of Present Illness HPI narrative: Patient is a 6-year-old female who presents ER with allergic reaction. Reports last night after eating dinner she started to develop swelling of her tongue and lips. It has stayed the same since then and has not worsened. Feels a little bit of pressure when she swallows. She had eaten baked chicken with a baked potato. She also had a [employer] Halloween candy containing peanut butter and chocolate. She has no difficulty breathing but has some slurred speech due to swelling of her tongue. This happened to her in the last year when she was on her lisinopril. She denies taking any new medications or any lisinopril. She does take atorvastatin but does not think that this was related. Patient has not taken any antihistamines or other medications today. Related Data Home Medications Medication Instructions Recorded Confirmed [facility]-3 Gummy Fish 2 tablet PO DAILY 11/04/20 12/13/20 ginkgo biloba-Panax ginseng rt 1 cap PO DAILY 11/04/20 12/13/20 lutein 20 mg capsule 20 mg PO DAILY 12/13/20 12/13/20 Allergies Allergy/AdvReac Type Severity Reaction Status Date / Time hydrochlorothiazide Allergy Swelling Verified 01/08/21 08:18 of Lip/Tongue/Throat lisinopril Allergy Swelling Verified 12/13/20 15:29 of Lip/Tongue/Throat Review of Systems Review of Systems: All systems reviewed & are unremarkable except as noted in HPI and below Constitutional: Constitutional: Denies chills, Denies fever(s) and Denies weakness ENT: Denies nasal congestion and Denies sore throat Comments: Tongue swelling Cardiovascular: Cardiovascular: Denies chest pain, Denies rapid heart rate and Denies radiating jaw, neck or arm pain Respiratory: Respiratory: Denies cough, Denies dyspnea and Denies wheezing Gastrointestinal: Gastrointestinal: Denies nausea and Denies vomiting Integumentary/Breasts: Skin/Breast: Denies pruritus, Denies erythema and Denies rash PMFSH Past Medical History Medical History Dyslipidemia 12/18/2017 Essential (primary) hypertension 12/18/2017 Left ureteral calculus 02/2020 Nephrolithiasis Prediabetes Surgical History Surgical History History of cystoscopy 02/21 - for left ureteral stone extraction Hx of section (~1979) 1990 [place] teeth extracted (~1981) Family History Family History Sibling , Descending artery was blocked Heart attack Family history of coronary artery disease Hypertension Mother Family history of aortic aneurysm Dementia Father FH: CABG (coronary artery bypass surgery) Social History Social History Smoking status: Never smoker Second hand tobacco smoke exposure: No Alcohol intake: never Alcohol use details: consumes 1 glass of wine weekly Substance use: never Substance use type: does not use Gender identity (if verbalized by the patient): Female Sexual Orientation (if Verbalized by the Patient): Straight or Heterosexual Spiritual care concerns: No Exam Narrative: GENERAL: Well-appearing, well-nourished, and in no acute distress. HEAD: Normocephalic, atraumatic. EYES: PERRL and EOMI. ENT: Mucous membranes moist. Angioedema of the tongue and upper and lower lips. Lips are mild, tongue is mild to moderate and is not protruding. Patient is a Mallampati 3 and uvula is nonedematous. NECK: Supple. CHEST: Clear to auscultation. No respiratory distress. HEART: Regular rate and rhythm. No murmur heard. Normal peripheral pulses. ABDOMEN: Soft, nontender, nondistended. EXTREMITIES: Normal range of motion. No edema
[2021-01-08] MEDS: EPINEPHrine HCL INJ 1 MG/ML AMPUL 0.3 MG IM (08:36)
[2021-01-08 08:40] LABS: Basophils Percent Auto 0.5 % (0.2-1.2); Eosinophils Absolute Auto 0.1 K/mm3 (0-0.3); Eosinophils Percent Auto 1.9 % (0-4.4); Hemoglobin 13.5 g/dL (12.0-15.0); Immature Granulocyte Absolute 0.08 K/mm3 (0.00-0.031); Immature Granulocyte Percent A 1.1 % (0-0.5); Lymphocytes Absolute Auto 1.46 K/mm3 (0.9-3.2); Lymphocytes Percent Auto 19.8 % (18.3-44.2); Mean Corpuscular HGB Conc 33.8 g/dl (32-36); Mean Corpuscular Hemoglobin 29.5 pg (26-34); Mean Corpuscular Volume 87.5 fl (80-100); Mean Platelet Volume 9.6 fl (7.4-10.4); Monocytes Absolute Auto 0.4 K/mm3 (0.1-0.6); Neutrophils Absolute Auto 5.2 K/mm3 (1.3-6.7); Neutrophils Percent Auto 70.7 % (45.5-73.1); Platelet Count Result 236 k/mm3 (150-375); Red Blood Count 4.57 M/mm3 (4.2-5.4); White Blood Count 7.4 K/mm3 (4.5-10.0)
[2021-01-08 08:52] LABS: Alanine Aminotransferase 18 U/L (4-35); Albumin Level 4.2 g/dL (3.5-5.1); Alkaline Phosphatase 114 U/L (38-126); Anion Gap 8 mmol/L (8-16); Aspartate Amino Transferase 32 U/L (14-36); Bilirubin,Total 0.8 mg/dL (0.2-1.3); Blood Urea Nitrogen 16 mg/dL (7-17); Calcium 9.4 mg/dL (8.4-10.2); Carbon Dioxide 24 mmol/L (22-30); Chloride 107 mmol/L (98-107); Estimated CRCL calculation 63 ml/min; Estimated Glomerular Filt Rate > 60; Glucose 151 mg/dL (65-110); Potassium 4.1 mmol/L (3.4-5.0); Sodium 139 mmol/L (137-145)
[2021-01-08 10:14] VITALS: BP 130/76; PULSE 85; RESP 18; O2SAT 98
[2021-01-08 11:42] VITALS: BP 132/80; PULSE 81; RESP 18; O2SAT 97
== END 2021-01-08 11:40 | disposition home or self-care (01) ==
PROVIDERS: Emergency Provider Emergency Medicine; PCP Family Medicine
DX: T78.3XXA Angioneurotic edema, initial encounter (principal); E78.5 Hyperlipidemia, unspecified; I10 Essential (primary) hypertension; Z87.442 Personal history of urinary calculi; R73.03 Prediabetes
CPT/HCPCS: 36415; 80053; 85025; 96372; 96374; 96375; 99284; J0171; J1200; J2930

== ENCOUNTER 2024-03-03 00:18 | Day surgery (SDC) | payer OTHER, SELFPAY ==
--- NOTE | 2024-03-03 08:23 | P.HP_ITS ---
H&P: HPI History of Present Illness Date/Time: 03/03/24 08:23 Chief Complaint: postmenopausal bleeding Narrative: Patient is a 63 year old female who presents for hysteroscopy, polypectomy and D&C indicated for postmenopausal bleeding and suspected endometrial polyp. She reports a 2-3 month hx of irregular bleeding after amenorrhea x10 years. Pelvic US demonstrated two vascular pedicles, one inside endometrial cavity and one in the cervical canal, suspicious for polyps. Risks, benefits, and alternatives to the procedure were discussed with the patient who voices understanding and would like to proceed. Review of Systems Review of Systems: All systems reviewed & are unremarkable except as noted in HPI and below PMFSH Past Medical History Medical History Left ureteral calculus 02/2020 Nephrolithiasis Prediabetes Essential (primary) hypertension 12/18/2017 Dyslipidemia 12/18/2017 Surgical History Surgical History History of cystoscopy 02/21 - for left ureteral stone extraction [place] teeth extracted (~1981) Hx of section (~1979) 1989 Family History Family History Sibling , Descending artery was blocked Heart attack Family history of coronary artery disease Hypertension Mother Family history of aortic aneurysm Dementia Father FH: CABG (coronary artery bypass surgery) Social History Social History Smoking status: Never smoker Second hand tobacco smoke exposure: No Alcohol intake: never Alcohol use details: consumes 1 glass of wine weekly Substance use: never Substance use type: does not use Gender identity (if verbalized by the patient): Female Sexual Orientation (if Verbalized by the Patient): Straight or Heterosexual Spiritual care concerns: No Meds Home Medications and Allergies Home Medications ?Medication ?Instructions ?Recorded ?Confirmed ?Type ginkgo biloba extract-Panax 1 cap PO DAILY 11/04/20 12/13/20 History ginseng root extract 60 mg-100 mg capsule omega 3 35 mg-dha 25 mg-epa 5 2 tablet PO DAILY 11/04/20 12/13/20 History mg-fish oil 113.5 mg chewable tablet ([facility] [place]-3 Gummy Fish) lutein 20 mg capsule 20 mg PO DAILY 12/13/20 12/13/20 History diphenhydramine HCl 25 mg tablet 25 mg PO QID allergic reaction #20 01/08/21 Rx (Benadryl Allergy) tabs famotidine 20 mg tablet (Pepcid) 20 mg PO BID #14 tabs 01/08/21 Rx prednisone 50 mg tablet 50 mg PO DAILY #7 tabs 01/08/21 Rx Allergies Allergy/AdvReac Type Severity Reaction Status Date / Time hydrochlorothiazide Allergy Swelling Verified 01/13/21 10:30 of Lip/Tongue/Throat lisinopril Allergy Swelling Verified 01/13/21 10:30 of Lip/Tongue/Throat Exam Const: General: comfortable and no acute distress HENMT: Mouth: Yes moist mucous membranes Eyes: General: appearance normal, both eyes and all related structures Resp: Effort & Inspection: normal respiratory effort Cardio: Rate: regular rate Extrem: General: normal to inspection Psych: Mental Status: mental status grossly normal Assessment and Plan Assessment and plan (1) Postmenopausal bleeding: Code(s): N95.0 - Postmenopausal bleeding Status: Acute Assessment and Plan: - 2-3 month hx of irregular bleeding after 10 years of amenorrhea - pelvic US demonstrates two possible polyps, one endometrial and one cervical - risks and benefits of procedure discussed with patient who voices understanding - will proceed with hysteroscopy, D&C and polypectomy
--- NOTE | 2024-03-03 08:44 | P.PNAN_ITS ---
Anes - Initial Pre Proc Eval Procedure: Operation Date: 03/03/24 09:30 Proposed Procedures p Hysteroscopy with Biopsy Endometrium - Ferny Allen MD Date/Time: 03/03/24 08:44 Surgeon: Ferny Allen MD Pre Op Diagnosis: Endometrial Polyp Patient Data Age: 63 Gender: F Height: Weight: Allergies Allergy/AdvReac Type Severity Reaction Status Date / Time hydrochlorothiazide Allergy Swelling Verified 03/03/24 08:48 of Lip/Tongue/Throat lisinopril Allergy Swelling Verified 03/03/24 08:48 of Lip/Tongue/Throat Home Medications ?Medication ?Instructions ?Recorded ?Confirmed ?Type ginkgo biloba extract-Panax 1 cap PO DAILY 11/04/20 03/03/24 History ginseng root extract 60 mg-100 mg capsule omega 3 35 mg-dha 25 mg-epa 5 2 tablet PO DAILY 11/04/20 03/03/24 History mg-fish oil 113.5 mg chewable tablet ([facility] [place]-3 Gummy Fish) lutein 20 mg capsule 20 mg PO DAILY 12/13/20 03/03/24 History atorvastatin 40 mg tablet 40 mg PO QPM 03/03/24 03/03/24 History chlorthalidone 25 mg tablet 25 mg PO DAILY 03/03/24 03/03/24 History Patient hx anesthesia problems: none Family hx anesthesia problems: none Results Review: All pre-operative results and documents have been reviewed as part of the pre- operative evaluation. [facility] Past Medical History Medical History Left ureteral calculus 02/2020 Nephrolithiasis Prediabetes Essential (primary) hypertension 12/18/2017 Dyslipidemia 12/18/2017 Surgical History Surgical History History of cystoscopy 02/21 - for left ureteral stone extraction [place] teeth extracted (~1981) Hx of section (~1979) 1989 Family History Family History Sibling , Descending artery was blocked Heart attack Family history of coronary artery disease Hypertension Mother Family history of aortic aneurysm Dementia Father FH: CABG (coronary artery bypass surgery) Social History Social History Smoking status: Never smoker Second hand tobacco smoke exposure: No Alcohol intake: never Alcohol use details: consumes 1 glass of wine weekly Substance use: never Substance use type: does not use Gender identity (if verbalized by the patient): Female Sexual Orientation (if Verbalized by the Patient): Straight or Heterosexual Spiritual care concerns: No Anes - Eval Final PreProcedure Day of Procedure 03/03/24 08:44 Patient weight: overweight Heart: regular rate and rhythm Lungs: clear to auscultation Airway: Mallampati scale class II Neurological: alert and oriented Last oral intake: >/= 8 hours ASA classification: III Emergent: no Anesthetic plan: proceed Anesthesia type and monitoring: general GIVS and standard monitoring Results Review: All pre-operative results and documents have been reviewed as part of the pre-operative evaluation. Informed Consent: The patient's anesthetic plan and its attendant risks and benefits were discussed with the patient/family/POA. Questions were solicited and answers provided to the satisfaction of the patient/family/POA.
[2024-03-03 09:35] VITALS: BP 137/97; PULSE 72; RESP 18; TEMP 36.2; O2SAT 99
--- NOTE | 2024-03-03 09:46 | WPDHPUPDATE1 ---
History and Physical Update Update Date/Time: 03/03/24 09:46 History and Physical has been reviewed, including an updated exam of the patient. There are NO changes in the patient's condition. Risks, benefits, and alternatives have been discussed and questions answered. Patient agrees to proceed with procedure.
[2024-03-03] MEDS: ACETAMINOPHEN 500 MG TABLET 1000 MG PO (10:00)
[2024-03-03] MEDS: LIDO 1%/EPINEPHRINE 1:100,000 20 ML VIAL 10 ML INFILTRATE (10:03)
--- NOTE | 2024-03-03 10:05 | P.OP_ITS ---
Procedure Note - Detailed Date of Procedure 03/03/24 Pre-op Diagnosis Endometrial Polyp Post-op Diagnosis Same Procedure Performed hysteroscopy, polypectomy Surgeon Ferny Allen MD Anesthesia MAC Findings Normal tubal ostia bilaterally; large endometrial polyp extending down to the cervical external os; uterine cavity free of pathology at end of case Description of Procedure The patient was taken to the operating room with IVFs running. She was placed into the dorsal supine position where she received MAC without any difficulty. The patient was placed in the dorsal lithotomy position using Gabriele stirrups. EUA revealed findings as above. She was then prepped and draped in a normal sterile fashion. A time-out procedure was performed and all members of the OR team agreed on the patient and plan. A bivalve speculum was then inserted into the patient's vagina. The anterior lip of the cervix was grasped with a single tooth tenaculum. A paracervical block of 1% lidocaine with epinephrine 10cc was placed. The uterus was gently sounded to 8 cm. The hysteroscope was then inserted into the uterine cavity using saline as the distension media and revealed the above findings. Both ostia were identified and pictures were taken. Using polyp forceps, the majority of the polyp was grasped and removed. At this point, the morcellator was then introduced into the hysteroscope and calibrated. The tip of the morcellator was then applied to the polyp and activated. The polyp was removed to its base. The hysteroscopy and morcellator were removed from the cavity and a sharp curettage was performed. At the end of the procedure, the uterine cavity was clear of all pathology. The fluid deficit was 170 cc. The specimen was sent for pathology. The hysteroscope and tenaculum were removed. The speculum was then reintroduced into the vagina and the anterior lip of the cervix was hemostatic. The speculum was then removed. The patient tolerated the procedure well. Sponge, lap, and instrument counts were correct X2. The patient was taken out of the dorsal lith otomy position and was awakened from anesthesia. She was taken to the recovery room in stable condition. Estimated Blood Loss 10 Pathology Yes Complications No immediate complications Condition Stable Disposition Same day
[2024-03-03 10:20] LABS: Anion Gap 4 mmol/L (4-12); Blood Urea Nitrogen 18 mg/dL (7-17); Calcium 9.1 mg/dL (8.4-10.2); Carbon Dioxide 28 mmol/L (22-30); Chloride 103 mmol/L (98-107); Estimated Glomerular Filt Rate > 60; Glucose 240 mg/dL (65-110); Potassium 4.3 mmol/L (3.4-5.0); Sodium 135 mmol/L (137-145)
[2024-03-03] MEDS: LACTATED RINGERS 1,000 ML 30 ML IV CONT (10:20)
[2024-03-03 10:36] VITALS: BP 99/58; PULSE 72; RESP 16; O2SAT 94
[2024-03-03 11:05] VITALS: BP 121/57; PULSE 64; RESP 16; O2SAT 98
[2024-03-03 11:40] VITALS: BP 115/62; PULSE 64; RESP 16
== END 2024-03-03 11:45 | disposition home or self-care (01) ==
PROVIDERS: Anesthesiology; PCP Internal Medicine; Visit Provider Obstetrics & Gynecology
PROC: 0U5B8ZZ Destruction of Endometrium, Via Natural or Artificial Opening Endoscopic (ICD-10-PCS; CPT 58563; principal; 2024-03-03 09:30)
DX: N84.0 Polyp of corpus uteri (principal); I10 Essential (primary) hypertension; R73.03 Prediabetes; E78.5 Hyperlipidemia, unspecified; Z79.52 Long term (current) use of systemic steroids; Z87.442 Personal history of urinary calculi; Z87.19 Personal history of other diseases of the digestive system; Z98.890 Other specified postprocedural states; Z82.49 Family history of ischemic heart disease and other diseases of the circulatory system
CPT/HCPCS: 58558; 36415; 80048; 88305; A9270; J1100; J2003; J2004; J2250; J2405; J2704; J3010; J7120

== ENCOUNTER 2025-02-24 03:53 | Day surgery (SDC) | payer OTHER, SELFPAY ==
[2025-02-16 15:21] VITALS: BMI 23.4
--- OUTSIDE RECORDS SUMMARY | 2025-02-24 03:55 | XMS_ITS | Clinical Summary ---
Author Organization [facility] Address [address] [place] [address] Phone Care Team Providers Care Boring And Filling Machine Operator Name Role Phone MYRTLE SUÁREZ MD Unavailable [phone] Reason for Visit and Chief Complaint postmenopausal bleeding - The Chief Complaint is: Endometrial Biopsy Problems Includes: Problems addressed during this encounter and other active Problems All Visits Onset Date Resolved Date Provider Condition S tatus Hyperlipidemia 11/12/2013 SARAH BETH HOUSE NP-BC Active Last Documented On 4 2:19PM ; [facility] Transient Ischemic Attack (Tia) 11/12/2013 MARIA L HOUSE NP-BC Active Last Documented On 4 2:19PM ; [facility] Hypertension Systemic 09/06/2012 STAN FERNANDES MD Active Last Documented On 3 10:17AM ; [facility] Plan of Treatment PMB: ES thickened on U/S, EMBX done today. We reviewed possible results and brief plan for each Mammogram scheduled later today at [facility] - Last Documented On 03/06/2017 10:19AM ; [facility] Pending Tests Order Diagnosis Results Due Ordering Provider In office procedures - OB Endometrial Biopsy Postmenopausal bleeding 03/20/17 STAN FERNANDES MD Last Documented On 8 10:16AM ; [facility] Assessments Includes: Assessments from this encounter Findings - Postmenopausal bleeding - Last Documented On 03/06/2017 10:19AM ; [facility] Medical Equipment - Implanted Devices Includes: Current Devices No Medical Equipment Recorded Medications Includes: Medications discussed during this encounter and other current Medications Current Medications (continue as prescribed) DHA [place] 3 100MG Oral Capsule 03/06/2017 Provider: Diagnosis: Last Documented On 03/06/2017 9:56AM By Maria Antonia Gregory MA ; [facility] B Complex Vitamins Oral Capsule, conventional 01/31/20 17 Provider: Diagnosis: Last Documented On 01/30/2017 3:37PM By Maria Antonia Gregory MA ; [facility] Simvastatin 5 MG Tablet 11/20/2014 Provider: Diagnosis: Last Documented On 11/20/2014 2:01PM By DALILA FORBES ; [facility] Lisinopril 10 MG OR TABS 12/12/2013 Provider: Diagnosis: Last Documented On 12/12/2013 8:49AM By DALILA FORBES ; [facility] Go MultiVitamin OR POWD 12/12/2013 Provider: Diagnosis: Last Documented On 12/12/2013 8:49AM By DALILA FORBES ; [facility] Past Medications on file Levora 0.15/30 (28) 0.15-30 MG-MCG OR TABS 04/19/2007 - 04/13/2008 Provider: Diagnosis: Last Documented On 03/26/2009 10:15AM By JUNIOR DAVIS ; [facility] Ortho Tri-Cyclen (28) 0.18/0 .215/0.25 MG-35 MCG OR TABS 03/28/2007 - 03/22/2008 Provider: Diagnosis: Last Documented On 03/26/2009 10:15AM By JUNIOR DAVIS ; [facility] Levora 0.15/30 (28) 0.15-30 MG-MCG OR TABS 01/23/2006 - 04/23/2006 Provider: Diagnosis: Last Documented On 03/26/2009 10:17AM By JUNIOR DAVIS ; [facility] Levora 0.15/30 (28) 0.15-30 MG-MCG OR TABS 06/26/2005 - 07/26/2005 Provider: Diagnosis: Last Documented On 03/26/2009 10:18AM By JUNIOR DAVIS ; [facility] Medications Administered Includes: Administered Medications from this encounter No Administered Medications Recorded Vital Signs Includes: Vital Signs from this encounter Vital Name 03/06/2017 09:56A Blood Pressure Sitting (mmHg) 138/70 Pulse Rate-Sitting (bpm) 92 Height (in) 65.5 Weight (lb) 160.6 Body Mass Index (kg/m2) 26.3 Body Surface Area (m2) 1.8 Last Documented: On 03/06/2017 9:59AM ; [facility] Results Includes: Results discussed during this encounter No Results Recorded For Specified Dates History of Present Illness Includes: History of Present Illness from this encounter CLAUDINE CALVILLO is a 56 year old female. - Not feeling tired (fatigue). - No chest pain or discomfort. - No shortness of breath. - No pelvic pain. - Postmenopausal bleeding a few 1-day episodes over the past year, none since annual exam - No vaginal discharge - No lightheadedness Social History Description Last Updated In monogamous relationship 03/06/2017 Last Documented On 8 10:19AM ; [facility] Alcohol use: 2 drinks or less per day no ne 03/06/2017 Last Documented On 8 10:19AM ; [facility] Not sexually active 03/06/2017 Last Documented On 8 10:19AM ; [facility] Non-smoker 03/06/2017 Last Documented On 8 10:19AM ; [facility] Smoking Status Unknown Procedures and Surgical History Includes: Procedures from this encounter Procedures Code Diagnosis Performing Provider Service L ocation Service Date Clinical summary provided to patient Last Documented On 8 9:59AM ; [facility] endometrial biopsy was performed 21981 Last Documented On 8 9:59AM ; [facility] procedure notes Last Documented On 8 9:59AM ; [facility] sterile speculum inserted Last Documented On 8 9:59AM ; [facility] cervix easily visualized Last Documented On 8 9:59AM ; [facility] cervix swabbed with Betadine Last Documented On 8 9:59AM ; [facility] pipelle passed easily to 7 cm Last Documented On 8 10:16AM ; [facility] 2 passes managed to obtain adequate appe aring specimen Last Documented On 8 9:59AM ; [facility] cervix hemostatic Last Documented On 8 9:59AM ; [facility] patient tolerated procedure well Last Documented On 8 9:59AM ; [facility] Medical History Includes: Medical History addressed during this encounter Description Last Updated Not using contraception none 03/06/2017 Last Documented On 8 10:19AM ; [facility] Result: normal Has one today at 3:30 04/2017 Last Documented On 8 10:19AM ; [facility] 3 03/06/2017 Last Documented On 8 10:19AM ; [facility] Last mammogram date: 08/14/2015 8 Last Documented On 8 10:19AM ; [facility] Last pap smear date 01/30/2017 8 Last Documented On 8 10:19AM ; [facility] LMP: [id number]/06/2017 Last Documented On 8 10:19AM ; [facility] Para 3 03/06/2017 Last Documented On 8 10:19AM ; [facility] Family History Includes: Family History addressed during this encounter Description Last Updated Maternal history of hypertension mom,comfort her 11/20/2014 Last Documented On 8 9:49AM ; [facility] Fraternal history of hypercholesterolemi a 11/20/2014 Last Documented On 8 9:49AM ; [facility] Maternal aunt's history of malignant fem faviola breast neoplasm maternal aunt 11/20/2014 Last Documented On 8 9:49AM ; [facility] Maternal grandmother's history of diabet es mellitus maternal grandmother 11/20/2014 Last Documented On 8 9:49AM ; [facility] Spouse name: Jose 11/12/2013 Last Documented On 8 9:49AM ; [facility] Family history of heart disease fathers side 11/12/2013 Last Documented On 8 9:49AM ; [facility] Family history of hypertension mom,comforthe r 11/12/2013 Last Documented On 8 9:49AM ; [facility] Family history of malignant female breas t neoplasm maternal aunt 11/12/2013 Last Documented On 8 9:49AM ; [facility] Family history of diabetes mellitus mate rnal grandmother 09/06/2012 Last Documented On 8 9:49AM ; [facility] Family history unchanged 09/06/2012 Last Documented On 8 9:49AM ; [facility] Review of Systems Includes: Review of Systems from this encounter Systemic: No recent weight change. Head: No headache. Eyes: No vision problems. Otolaryngeal: No hoarseness. Cardiovascular: No chest pain or discomfort and no palpitations. Pulmonary: No shortness of breath. Gastrointestinal: Normal appetite. No nausea, no vomiting, and no hematochezia. No diarrhea and no constipation. Genitourinary: No nocturia. No urinary loss of control and no dysuria. Musculoskeletal: No arthralgias and no localized joint swelling. Neurological: No tingling and no numbness. Psychological: No anxiety, no depression, and no sleep disturbances. Mental Status Includes: Mental Status from this encounter Description No anxiety Functional Status Includes: Functional Status from this encounter No Functional Status Recorded Physical Exam Includes: Physical Exam from this encounter Allergies Includes: Active Allergies No Known Allergies Encounters Encounter Provider Location Date Check-In Time Check-Out Time Diagnosis ENDOMETRIAL BIOPSY STAN FERNANDES MD [facility] EXTRUDER OPERATOR VERTICAL 018 9:48AM 10:17AM Postmenopausal Bleeding Insurance Includes: Active Insurance Policies Plan Name Member ID Group # Subscriber Relationship Effect trace Dates [id number] GILBERTO CALVILLO Self Clinical Notes Includes: Clinical Notes from this encounter No Clinical Notes Recorded
--- OUTSIDE RECORDS SUMMARY | 2025-02-24 03:55 | XMS_ITS | Clinical Summary ---
Author Organization [facility] Address [address] [place] [address] Phone Care Team Providers Care Custom Miller Name Role Phone MYRTLE SUÁREZ MD Unavailable [phone] Reason for Visit and Chief Complaint postmenopausal bleeding - The Chief Complaint is: Annual.past menopause but is having some bleedingthat started about a year ago, has cramps, last time she did bleed was 2 weeks ago Problems Includes: Problems addressed during this encounter and other active Problems All Visits Onset Date Resolved Date Provider Condition S tatus Hyperlipidemia 11/12/2013 SARAH BETH HOUSE NP-BC Active Last Documented On 4 2:19PM ; [facility] Transient Ischemic Attack (Tia) 11/12/2013 MARIA L HOUSE [facility] Active Last Documented On 4 2:19PM ; [facility] Hypertension Systemic 09/06/2012 STAN FERNANDES MD Active Last Documented On 3 10:17AM ; [facility] Plan of Treatment PMB: check U/S as next step. Patient is aware she may need to come back for EMBX and/or other procedure depending on results - Last Documented On 01/30/2017 3:57PM ; [facility] Pending Tests Order Diagnosis Results Due Ordering P roarturder Radiology @ other - *MAMMOGRAPHY SCREENING MAMMOGRAM Encntr screen mammogram for malignant neoplasm of breast 01/30/17 STAN FERNANDES MD Last Documented On 8 12:04PM ; [facility] U/S @ UNA - OB or JV U/S PTVT US Postmenopausal bleed ing 01/30/17 STAN FERNANDES MD Last Documented On 7 2:30PM ; [facility] Instructions to patient Instructions for patient : B reast Self Exam discussed Last Documented On 7 3:39PM ; [facility] Education and Decision Aids were provided during visit for: STD screening offered and de clined Last Documented On 7 3:39PM ; [facility] Bone Mineral Density Screeni ng guidelines reviewed Last Documented On 7 3:39PM ; [facility] Patient Education: Daily berhane cium and vitamin D Last Documented On 7 3:39PM ; [facility] Patient Education: weight be aring exercise Last Documented On 7 3:39PM ; [facility] Colonoscopy screening guidel jacklyn discussed Last Documented On 7 3:39PM ; [facility] Assessments Includes: Assessments from this encounter Findings - Routine pelvic exam - Last Documented On 01/30/2017 3:57PM ; [facility] - Postmenopausal bleeding - Last Documented On 01/30/2017 3:57PM ; [facility] - Screening Malig. Neoplasm Rectum - Last Documented On 01/30/2017 3:57PM ; [facility] Instructions Includes: Instructions from this encounter Instructions to patient Instructions for patient : B reast Self Exam discussed Last Documented On 7 3:39PM ; [facility] Education and Decision Aids were provided during visit for: STD screening offered and de clined Last Documented On 7 3:39PM ; [facility] Bone Mineral Density Screeni ng guidelines reviewed Last Documented On 7 3:39PM ; [facility] Patient Education: Daily berhane cium and vitamin D Last Documented On 7 3:39PM ; [facility] Patient Education: weight be aring exercise Last Documented On 7 3:39PM ; [facility] Colonoscopy screening guidel jacklyn discussed Last Documented On 7 3:39PM ; [facility] Medical Equipment - Implanted Devices Includes: Current Devices No Medical Equipment Recorded Medications Includes: Medications discussed during this encounter and other current Medications Current Medications (continue as prescribed) DHA [place] 3 100MG Oral Capsule 03/06/2017 Provider: Diagnosis: Last Documented On 03/06/2017 9:56AM By Maria Antonia Gregory MA ; [facility] B Complex Vitamins Oral Capsule, conventional 01/31/20 17 Provider: Diagnosis: Last Documented On 01/30/2017 3:37PM By Maria Antonia Gregory MA ; [facility] Simvastatin 5 MG Tablet 11/20/2014 Provider: Diagnosis: Last Documented On 11/20/2014 2:01PM By DALILA FORBES ; [facility] Lisinopril 10 MG OR TABS 12/12/2013 Provider: Diagnosis: Last Documented On 12/12/2013 8:49AM By DALILA FORBES ; [facility] Go MultiVitamin OR POWD 12/12/2013 Provider: Diagnosis: Last Documented On 12/12/2013 8:49AM By DALILA FORBES ; [facility] Past Medications on file Levora 0.15/30 (28) 0.15-30 MG-MCG OR TABS 04/19/2007 - 04/13/2008 Provider: Diagnosis: Last Documented On 03/26/2009 10:15AM By JUNIOR DAVIS ; [facility] Ortho Tri-Cyclen (28) 0.18/0 .215/0.25 MG-35 MCG OR TABS 03/28/2007 - 03/22/2008 Provider: Diagnosis: Last Documented On 03/26/2009 10:15AM By JUNIOR DAVIS ; [facility] Levora 0.15/30 (28) 0.15-30 MG-MCG OR TABS 01/23/2006 - 04/23/2006 Provider: Diagnosis: Last Documented On 03/26/2009 10:17AM By JUNIOR DAVIS ; [facility] Levora 0.15/30 (28) 0.15-30 MG-MCG OR TABS 06/26/2005 - 07/26/2005 Provider: Diagnosis: Last Documented On 03/26/2009 10:18AM By JUNIOR DAVIS ; [facility] Medications Administered Includes: Administered Medications from this encounter No Administered Medications Recorded Vital Signs Includes: Vital Signs from this encounter Vital Name 01/30/2017 03:30P Blood Pressure Sitting (mmHg) 126/70 Pulse Rate-Sitting (bpm) 86 Height (in) 65.5 Weight (lb) 158.4 Body Mass Index (kg/m2) 26.0 Body Surface Area (m2) 1.8 Last Documented: On 01/30/2017 3:35PM ; [facility] Results Includes: Results discussed during this encounter No Results Recorded For Specified Dates History of Present Illness Includes: History of Present Illness from this encounter CLAUDINE CALVILLO is a 56 year old female. - No pelvic pain. - Postmenopausal bleeding approximately 4 1-day episodes of spotting or light flow over past year - No vaginal discharge She is not sexually active Social History Description Last Updated In monogamous relationship 01/30/2017 Last Documented On 7 3:57PM ; [facility] Non-smoker 01/30/2017 Last Documented On 7 3:57PM ; [facility] Not sexually active 01/30/2017 Last Documented On 7 3:57PM ; [facility] Smoking Status Unknown Procedures and Surgical History Includes: Procedures from this encounter Procedures Code Diagnosis Performing Provider Service L ocation Service Date Clinical summary provided to patient Last Documented On 7 3:39PM ; [facility] cervical Pap smear 67069 Last Documented On 7 3:39PM ; [facility] fecal occult blood test was negative [id number] Last Documented On 7 3:39PM ; [facility] Medical History Includes: Medical History addressed during this encounter Description Last Updated A colonoscopy was performed 2012 017 Last Documented On 7 3:57PM ; [facility] History of menopause 01/30/2017 Last Documented On 7 3:57PM ; [facility] Not using contraception none 01/30/2017 Last Documented On 7 3:57PM ; [facility] Result: normal 01/30/2017 Last Documented On 7 3:57PM ; [facility] Result: normal 01/30/2017 Last Documented On 7 3:57PM ; [facility] 3 01/30/2017 Last Documented On 7 3:57PM ; [facility] Last mammogram date: 08/14/2015 7 Last Documented On 7 3:57PM ; [facility] Last pap smear date 09/06/2012 01/30/2017 Last Documented On 7 3:57PM ; [facility] LMP: [id number]/30/2017 Last Documented On 7 3:57PM ; [facility] Para 3 01/30/2017 Last Documented On 7 3:57PM ; [facility] Family History Includes: Family History addressed during this encounter Description Last Updated Maternal history of hypertension mom,comfort [place] 11/20/2014 Last Documented On 7 3:24PM ; [facility] Fraternal history of hypercholesterolemi a 11/20/2014 Last Documented On 7 3:24PM ; [facility] Maternal aunt's history of malignant fem faviola breast neoplasm maternal aunt 11/20/2014 Last Documented On 7 3:24PM ; [facility] Maternal grandmother's history of diabet es mellitus maternal grandmother 11/20/2014 Last Documented On 7 3:24PM ; [facility] Spouse name: Jose 11/12/2013 Last Documented On 7 3:24PM ; [facility] Family history of heart disease fathers side 11/12/2013 Last Documented On 7 3:24PM ; [facility] Family history of hypertension momwilian 11/12/2013 Last Documented On 7 3:24PM ; [facility] Family history of malignant female breas t neoplasm maternal aunt 11/12/2013 Last Documented On 7 3:24PM ; [facility] Family history of diabetes mellitus mate rnal grandmother 09/06/2012 Last Documented On 7 3:24PM ; [facility] Family history unchanged 09/06/2012 Last Documented On 7 3:24PM ; [facility] Review of Systems Includes: Review of Systems [...] Location Date Check-In Time Check-Out Time Diagnosis ANNUAL TUBERCULOSIS SPECIALIST EXAM STAN FERNANDES MD [facility] BALL ENDER 01/31/20 17 3:22PM 4:00PM Routine Pelvic Exam,Shahla Izquierdo. Neoplasm Rectum,Postme nopausal Bleeding Insurance Includes: Active Insurance Policies Plan Name Member ID Group # Subscriber Relationship Effect trace Dates [id number] GILBERTO CALVILLO Self Clinical Notes Includes: Clinical Notes from this encounter No Clinical Notes Recorded
--- OUTSIDE RECORDS SUMMARY | 2025-02-24 03:55 | XMS_ITS ---
Care Plan - [facility] Created on: February 24, 2025 GILBERTO CALVILLO : 1960 Sex: Female Author Organization [facility] Address [address] [place] [address] Phone Care Team Providers Care Surgical Orderly Name Role Phone JOSE ARMANDO DOWD, MYRTLE Ayala Unavailable [phone]
--- OUTSIDE RECORDS SUMMARY | 2025-02-24 03:56 | XMS_ITS | Clinical Summary ---
Author Organization [facility] Address [address] [place] [address] Phone Care Team Providers Care College Coach Name Role Phone MYRTLE SUÁREZ MD Unavailable [phone] Reason for Visit and Chief Complaint [Patient Encounter] Problems Includes: Problems addressed during this encounter and other active Problems All Visits Onset Date Resolved Date Provider Condition S tatus Hyperlipidemia 11/12/2013 SARAH [facility]- Active Last Documented On 4 2:19PM ; [facility] Transient Ischemic Attack (Tia) 11/12/2013 MARIA L HOUSE [facility] Active Last Documented On 4 2:19PM ; [facility] Hypertension Systemic 09/06/2012 STAN FERNANDES MD Active Last Documented On 3 10:17AM ; [facility] Plan of Treatment No Plan of Treatment Recorded Assessments Includes: Assessments from this encounter No Assessments Recorded Medical Equipment - Implanted Devices Includes: Current Devices No Medical Equipment Recorded Medications Includes: Medications discussed during this encounter and other current Medications Current Medications (continue as prescribed) DHA Bouse 3 100MG Oral Capsule 03/06/2017 Provider: Diagnosis: Last Documented On 03/06/2017 9:56AM By Maria Antonia Gregory MA ; [facility] B Complex Vitamins Oral Capsule, conventional 01/31/20 17 Provider: Diagnosis: Last Documented On 01/30/2017 3:37PM By Maria Antonia Gregory MA ; [facility] Simvastatin 5 MG Tablet 11/20/2014 Provider: Diagnosis: Last Documented On 11/20/2014 2:01PM By DALILA FORBES ; [facility] Lisinopril 10 MG OR TABS 12/12/2013 Provider: Diagnosis: Last Documented On 12/12/2013 8:49AM By DALILA FORBES ; [facility] Go MultiVitamin OR POWD 12/12/2013 Provider: Diagnosis: Last Documented On 12/12/2013 8:49AM By DALILA FORBES ; [facility] Medications Administered Includes: Administered Medications from this encounter No Administered Medications Recorded Results Includes: Results discussed during this encounter No Results Recorded For Specified Dates History of Present Illness Includes: History of Present Illness from this encounter No History of Present Illness Recorded Social History No Social History Recorded - Smoking Status Unknown Medical History Includes: Medical History addressed during this encounter No Medical History Recorded Family History Includes: Family History addressed during this encounter No Family History Recorded Review of Systems Includes: Review of Systems from this encounter No Review of Systems Recorded Mental Status Includes: Mental Status from this encounter No Mental Status Recorded Functional Status Includes: Functional Status from this encounter No Functional Status Recorded Physical Exam Includes: Physical Exam from this encounter No Physical Exam Recorded Allergies Includes: Active Allergies No Known Allergies Encounters Encounter Provider Location Date Check-In Time Check- Out Time Diagnosis [Patient Encounter] STAN FERNANDES MD [facility] 5 11:37AM 11:59PM Insurance Includes: Active Insurance Policies Plan Name Member ID Group # Subscriber Relationship Effect trace Dates [id number] GILBERTO CALVILLO Self Clinical Notes Includes: Clinical Notes from this encounter No Clinical Notes Recorded
--- OUTSIDE RECORDS SUMMARY | 2025-02-24 03:56 | XMS_ITS | Clinical Summary ---
Author Organization [facility] Address [address] [place] [address] Phone Care Team Providers Care Adobe Architect Name Role Phone MYRTLE SUÁREZ MD Unavailable [phone] Reason for Visit and Chief Complaint gynecologic annual exam - The Chief Complaint is: Annual Problems Includes: Problems addressed during this encounter and other active Problems All Visits Onset Date Resolved Date Provider Condition S tatus Hyperlipidemia 11/12/2013 SARAH [facility] Active Last Documented On 4 2:19PM ; [facility] Transient Ischemic Attack (Tia) 11/12/2013 MARIA L [facility]SE [facility] Active Last Documented On 4 2:19PM ; [facility] Hypertension Systemic 09/06/2012 STAN FERNANDES MD Active Last Documented On 3 10:17AM ; [facility] Plan of Treatment - Follow-up visit 1 year or as needed - Last Documented On 11/20/2014 2:11PM ; [facility] - Clinical summary provided to patient - Last Documented On 11/20/2014 2:11PM ; [facility] Per new ASCCP guidelines, pap was deferred today. This was d/w pt. and pt. is agreeable to this plan. - Last Documented On 11/20/2014 2:11PM ; [facility] Instructions to patient Instructions for patient : B reast Self Exam discussed Last Documented On 5 1:53PM ; [facility] Colonoscopy Handout given to patient Last Documented On 5 1:54PM ; [facility] Education and Decision Aids were provided during visit for: Patient Education: Daily berhane cium and vitamin D Last Documented On 5 1:53PM ; [facility] Patient Education: weight be aring exercise Last Documented On 5 1:53PM ; [facility] Assessments Includes: Assessments from this encounter Findings - NORMAL FEMALE EXAM - Last Documented On 11/20/2014 2:11PM ; [facility] - Screening Malig. Neoplasm Rectum - Last Documented On 11/20/2014 2:11PM ; [facility] Instructions Includes: Instructions from this encounter Instructions to patient Instructions for patient : B reast Self Exam discussed Last Documented On 5 1:53PM ; [facility] Colonoscopy Handout given to patient Last Documented On 5 1:54PM ; [facility] Education and Decision Aids were provided during visit for: Patient Education: Daily berhane cium and vitamin D Last Documented On 5 1:53PM ; [facility] Patient Education: weight be aring exercise Last Documented On 5 1:53PM ; [facility] Medical Equipment - Implanted Devices Includes: Current Devices No Medical Equipment Recorded Medications Includes: Medications discussed during this encounter and other current Medications Current Medications (continue as prescribed) DHA Brocket 3 100MG Oral Capsule 03/06/2017 Provider: Diagnosis: Last Documented On 03/06/2017 9:56AM By Maria Antonia Gregory MA ; [facility] B Complex Vitamins Oral Capsule, conventional 01/31/20 17 Provider: Diagnosis: Last Documented On 01/30/2017 3:37PM By Maria Antonia Gregory MA ; [facility] Simvastatin 5 MG Tablet 11/20/2014 Provider: Diagnosis: Last Documented On 11/20/2014 2:01PM By DALILA FORBES ; [facility] Lisinopril 10 MG OR TABS 12/12/2013 Provider: Diagnosis: Last Documented On 12/12/2013 8:49AM By DALILA FORBES ; [facility] Go MultiVitamin OR POWD 12/12/2013 Provider: Diagnosis: Last Documented On 12/12/2013 8:49AM By DALILA FORBES ; [facility] Past Medications on file Levora 0.15/30 (28) 0.15-30 MG-MCG OR TABS 04/19/2007 - 04/13/2008 Provider: Diagnosis: Last Documented On 03/26/2009 10:15AM By JUNIOR DAVIS ; [facility] Ortho Tri-Cyclen (28) 0.18/0 .215/0.25 MG-35 MCG OR TABS 03/28/2007 - 03/22/2008 Provider: Diagnosis: Last Documented On 03/26/2009 10:15AM By JUNIOR DAVIS ; [facility] Levora 0.15/30 (28) 0.15-30 MG-MCG OR TABS 01/23/2006 - 04/23/2006 Provider: Diagnosis: Last Documented On 03/26/2009 10:17AM By JUNIOR DAVIS ; [facility] Levora 0.15/30 (28) 0.15-30 MG-MCG OR TABS 06/26/2005 - 07/26/2005 Provider: Diagnosis: Last Documented On 03/26/2009 10:18AM By JUNIOR DAVIS ; [facility] Medications Administered Includes: Administered Medications from this encounter No Administered Medications Recorded Vital Signs Includes: Vital Signs from this encounter Vital Name 11/20/2014 01:55P 11/20/2014 01: 54P Blood Pressure Sitting L 110/62 BP Cuff Size Regular Height (in) 65.5 66.5 Weight (lb) 148 Body Mass Index (kg/m2) 24.3 Body Surface Area (m2) 1.8 Last Documented: On 11/20/2014 1:58PM ; [facility] On 11/20/2014 1:54PM ; [facility] Results Includes: Results discussed during this encounter [facility] In [facility]. [facility]03 Collected: 11/12/2013 Reported: 11/14/19 14 11:03 Last Documented On 4 1:03PM ; [facility] Reviewed on 11/14/2013; All test results are final unless otherwise noted. FSH 107.8 mIU/mL N (Normal) Last Documented On 11/13/2013 1:03PM ; [facility] Note: Reference Range Follicular Phase 2.5-10.2 Mid-cycle Peak 3.1-17.7 Luteal Phase 1.5- 9.1 Postmenopausal 23.0-116.3 SUREPATH PAP [facility] In [facility]. Ordered by STAN FERNANDES MD on 3 Collected: 09/06/2012 Reported: 09/12/19 13 10:47 Last Documented On 3 1:45PM ; [facility] Reviewed on 09/23/2012; All test results are final unless otherwise noted. SOURCE: See Note N (Normal) Last Documented On 09/11/2012 1:45PM ; [facility] Note: Cervix, Endocervix CLINICAL INFORMATION: See Note N (Normal) Last Documented On 09/11/2012 1:45PM ; [facility] Note: Information not provided LMP: See Note N (Normal) Last Documented On 09/11/2012 1:45PM ; [facility] Note: 1 MONTH AGO PREV. PAP: See Note N (Normal) Last Documented On 09/11/2012 1:45PM ; [facility] Note: 10-26-10, WNL PREV. BX: See Note N (Normal) Last Documented On 09/11/2012 1:45PM ; [facility] Note: CXBX 05-28-08 STATEMENT OF ADEQUACY: See Note N (Normal) Last Documented On 09/11/2012 1:45PM ; [facility] Note: Satisfactory for evaluation.Endocervical/transformation zone componentpresent. INTERPRETATION/RESULT: See Note N (Normal) Last Documented On 09/11/2012 1:45PM ; [facility] Note: Negative for intraepithelial lesion or malignancy. ELEVATED GUARD: See Note N (Normal) Last Documented On 09/11/2012 1:45PM ; [facility] Note: BAB, CT(ASCP) HPV DNA (HIGH RISK) [facility] In [facility]. Ordered by STAN FERNANDES MD on 3 Collected: 09/06/2012 Reported: 09/12/19 13 10:47 Last Documented On 3 1:45PM ; [facility] Reviewed on 09/23/2012; All test results are final unless otherwise noted. HPV DNA (HIGH RISK) NOT DETECTED (NOT DETECTED) N (Normal) Last Documented On 3 1:45PM ; [facility] Note: Tested for high risk types 16,18,31,33,35,39,45,51,52,56,58,59,68.The analytical performance characteristics of thisassay, when used to test SurePath or vaginal specimens,have been determined by [facility].Methodology: Hybrid Capture with Signal Amplification. History of Present Illness Includes: History of Present Illness from this encounter HPI GILBERTO CALVILLO is a 54 year old female. - Medication list reviewed - PRIMARY CARE PROVIDER : Dr Christiano Angulo - Menopause has occurred Social History Description Last Updated Alcohol use occ 11/20/2014 Last Documented On 5 2:11PM ; [facility] In monogamous relationship 11/20/2014 Last Documented On 5 2:11PM ; [facility] Non-smoker 11/20/2014 Last Documented On 5 2:11PM ; [facility] Not using drugs 11/20/2014 Last Documented On 5 2:11PM ; [facility] Sexually active with 1 partners in the l ast year 11/20/2014 Last Documented On 5 2:11PM ; [facility] Social history unchanged 11/20/2014 Last Documented On 5 2:11PM ; [facility] Smoking status : Never smoker 11/20/2014 Last Documented On 5 2:11PM ; [facility] Procedures and Surgical History Includes: Procedures from this encounter Procedures Code Diagnosis Performing Provider Service L ocation Service Date low fat diet Last Documented On 5 1:54PM ; [facility] a fecal occult blood test was negative 36498 Last Documented On 5 1:53PM ; [facility] normal history of Pap smear of cervix Last Documented On 5 2:00PM ; [facility] Medical History Includes: Medical History addressed during this encounter Description Last Updated 3 03/06/2017 Last Documented On 5 1:54PM ; [facility] LMP: 08/201203/06/2017 Last Documented On 5 1:54PM ; [facility] Para 3 03/06/2017 Last Documented On 5 1:54PM ; [facility] section 11/20/2014 Last Documented On 5 2:11PM ; [facility] History of benign essential hypertension 11/20/2014 Last Documented On 5 2:11PM ; [facility] No recent change in medical history 11/03 Last Documented On 5 2:11PM ; [facility] Not sexually active 11/20/2014 Last Documented On 5 2:11PM ; [facility] History of complete colonoscopy 2012 Dr Ol[place] repeat in 10 years 11/20/2014 Last Documented On 5 2:11PM ; [facility] History of Pap smear done 09/06/201211/03 Last Documented On 5 2:11PM ; [facility] History of screening mammogram was perfo rmed 07/18/2014 11/20/2014 Last Documented On 5 2:11PM ; [facility] Result: normal 11/20/2014 Last Documented On 5 2:11PM ; [facility] Result: normal 11/20/2014 Last Documented On 5 2:11PM ; [facility] History of hyperlipidemia 10/26/2010 Last Documented On 5 1:54PM ; [facility] Family History Includes: Family History addressed during this encounter Description Last Updated Maternal history of hypertension mom,fat her 11/20/2014 Last Documented On 5 2:11PM ; [facility] Fraternal history of hypercholesterolemi a 11/20/2014 Last Documented On 5 2:11PM ; [facility] Maternal aunt's history of malignant fem faviola breast neoplasm maternal aunt 11/20/2014 Last Documented On 5 2:11PM ; [facility] Maternal grandmother's history of diabet es mellitus maternal grandmother 11/20/2014 Last Documented On 5 2:11PM ; [facility] Spouse name: Jose 11/12/2013 Last Documented On 5 1:54PM ; [facility] Family history of heart disease fathers side 11/12/2013 Last Documented On 5 1:54PM ; [facility] Family history unchanged 09/06/2012 Last Documented On 5 1:54PM ; [facility] Review of Systems Includes: Review of Systems from this encounter Genitourinary: No pelvic pain and no postmenopausal bleeding. No vaginal discharge. 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 Neoplasm Rectum,Normal Female Exam Insurance Includes: Active Insurance Policies Plan Name Member ID Group # Subscriber Relationship Effect trace Dates - [facility] [id number] GILBERTO CALVILLO Self Clinical Notes Includes: Clinical Notes from this encounter No Clinical Notes Recorded
--- OUTSIDE RECORDS SUMMARY | 2025-02-24 03:56 | XMS_ITS | Clinical Summary ---
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 Gender Identity Not on file Sexual Orientation Not on file Obstetrics History Para Term AB IAB SAB Ectopic Multiple Livin g Live Births 3 3 3 Date Outcome GA Total Labor Labor/2nd/3rd Weight Sex Type Anes PTL Randa A1 A5 Name Clin Term Term Term Last Filed Vital Signs Vital Sign Reading Time Taken Comments Blood Pressure - - Pulse - - Temperature - - Respiratory Rate - - Oxygen Saturation - - Inhaled Oxygen Concentration - - Weight 72.6 kg (160 lb) 01/27/2020 12:34 PM 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 SUPERVISOR Height 170.2 cm (5' 7) 01/27/2020 12:34 PM PASTER SUPERVISOR Body Mass Index 25.06 01/27/2020 12:34 PM PASTER SUPERVISOR Plan of Treatment Health Maintenance Due Date Last Done Comments Cervical Cancer Screening 1960 Colon Cancer Screening-Colonoscopy 1960 Depression Screening 1960 Hepatitis C Screening 1960 Hepatitis B Screening 1978 Regular Well Visit/Exam 18-64 1978 Zoster Vaccine (1 of 2) 2010 Influenza Vaccine (#1) 2024 12/14/2019 Breast Cancer Screening-Mammogram 06/14/2025 06/14/2024, 04/21/2023, 04/08/2022, Additional history exists DTaP/Tdap/Td Vaccine (2 - Td or Tdap) 08/18/2026 08/18/2016, 07/19/2005 Pneumococcal vaccine <65 Aged Out No longer eligible based on patient's age to complete this topic Procedures Procedure Name Priority Date/Time Associated Diagnosis Comments SCREENING MAMMOGRAM BILATERAL W GA Schedule Routine, Read Routine (OP Routine) 06/14/2024 10:15 AM CDT Screening mammogram, encounter for from Last 3 Months or Most Recently Relevant to Health Maintenance Results * Screening Mammogram Bilateral W Ga (06/14/2024 10:15 AM CDT) Anatomical Region Laterality Modality Breast Bilateral Mammography 06/16/2024 8:06 AM CDT Impressions 06/16/2024 8:06 AM CDT There is no mammographic evidence of malignancy. A 1 year screening mammogram is recommended. BI-RADS: 1 - Negative. The patient has been or will be contacted. The patient will be entered into a reminder system with a target due date of 1 year for her next mammogram. Electronically signed by: Robina Valdez M.D. Narrative 06/16/2024 8:06 AM CDT EXAMINATION: SCREENING MAMMOGRAM BILATERAL W GA ORDERING HEALTHCARE PROVIDER: SELF SCREENING MAMMOGRAM HISTORY: Routine screening mammography. COMPARISON: 04/21/2023, 04/08/2022, 02/24/2021, 01/27/2020, 06/08/2018 TECHNIQUE: CC and MLO views of the bilateral breasts were obtained with digital technique using breast tomosynthesis with C view. Computer aided detection was utilized. The study is limited due to positioning. FINDINGS: DENSITY: There are scattered areas of fibroglandular density. BREASTS: There are no suspicious masses, suspicious calcifications, or other suspicious findings in either breast. There has been no suspicious interval change. us Self Screening Mammogram IMG MAMMO PROCEDURES Fi nal Result from Last 3 Months or Most Recently Relevant to Health Maintenance Insurance [employer] [facility] [employer]ESS Care Teams Telephone Instrument Supervisor Relationship Specialty Start Date End Date No, Physician PCP - General 04/23/24
--- OUTSIDE RECORDS SUMMARY | 2025-02-24 03:56 | XMS_ITS | Data Portability ---
Author Organization [facility], [place] Address [address] [place] [address] [address] [place] [address] Care Team Providers Care Electronic Specialist Name Role Phone WINDY YAIR Primary Care Provider [phone] Assessment Encounter Date Assessment Date Assessment LastModified by Organization Details LastModified Time 04/22/2022 04/22/2022 Annual gynecological exam performed. Patient will come back in a year unless there are new symptoms. [email or web address] Not available 04/22/2022 12:05:37 02/12/2024 02/12/2024 Annual gynecological exam performed. Patient will come back in a year unless there are new symptoms. [email or web address] Not available 02/12/2024 11:11:12 Plan of Treatment Reminders Order Date Submit Date Provider Last Modified By Organization Details Last Modified Time Details Appointments None recorded. Lab unlisted lab - women's health swab, YENY 2023 [facility] (Lab), [address], [place], [address], 4 05:54:38 urinalysis, dipstick 2023 024 [place], [address], [place], [address], 4 11:52:24 culture, urine 2023 024 [facility] (Lab), [address], [place], [address], 4 05:54:39 Referral None recorded. Procedures colonoscopy procedure (PROC) 2023 024 [email or web address] [facility], [address], [address], [place], [address], 4 14:34:36 Surgeries hysteroscop y, surgical, with biopsy of endometrium and/or polypectomy (SURG) [address] [facility], [address], [place], [address], 4 17:37:46 Imaging US, pelvis [address], [address], [place], [address], 4 22:35:31 US, transvagina l [email or web address], [address], [place], [address], 4 22:35:31 MAMMO, screening, digital, bilateral 2023 024 [facility] (Radiology), [address] [facility] , [place], [address], 5 05:01:04 US, pelvis, complete 2023 024 [facility], [address], [place], [address], 5 05:01:04 MAMMO, screening, bilateral 2022 023 [facility], [address], [facility] [address], [place], [address], 3 05:01:22 Medication Orders Macrobid 100 mg capsule 2023 024 [id number], [address] [facility], [place], [place], [id number], 4 11:13:07 Patient TargetsNo targets recorded. Patient InstructionsNo instructions recorded. Reason for Referral None Reported. Results Created Date Observation Date Name Description Value Unit Range Abnormal Flag Note LastModifiedBy Organization Detail LastModifiedTime 04/24/19 23 04/24/2022 IMAGE GUIDE D PAP AND HPV REGAR DLESS image guided Pap, HPV regardless of Pap result SEE RESULT S BELOW CASE REPOR T: Cytol ogy Gynec ologi berhane Repor t Case: [id number] Autho germania oneill Provi eusebia: Lida miller , Mirela Smith cted: 04/24 0947 CLAIMS ADJUSTOR Order ing Locat ion: [place] Patho log[facility] Recei aden: 04/25 0830 First Scree n: Gaetano toledo ak, [place] ay, CT Rescr een: Adilene Denny Speci men: Scree hattie Pap - Image d, Cervi x STATE MENT OF ADEQU ACY: Satis facto ry for evalu ation Trans forma tion zone compo nent prese nt Parti chu obscu ring infla mmati on prese nt. FINAL DIAGN OSIS: Negat trace for Intra epith elial Jt mitchell or Timbo lin (NIL) . Elect kyle sage vickie d by Adilene Denny on 2022 at 7:12 PM ----- ----- ----- ----- ----- ----- ----- ----- ----- ----- ----- ----- ----- ----- ----- ----- ----- ---- HPV RESUL TS: HPV mRNA E6/E7 : No HPV mRNA Detec eva NOTE: This high risk HPV mRNA assay detec ts fourt een high- risk HPV types (16, 18, 31, 33, 35, 39, 45, 51, 52, 56, 58, 59, 66, 68) witho ut diffe renti ation . COMME NT: Note: This speci men was revie wed by a Cytot echno logis t and/o r Patho logis t (as indic ated in this repor t) after evalu ation using the Thinp rep Imagi ng Syste m. CLINI BERHANE INFOR MATIO N: Menst rual Statu s: LMP (if appli cable ): Clini berhane Histo ry/Pr eviou s Pap: Type of Neopl sam (if appli cable ): Signi fican t Clini berhane Findi ngs: Other Histo ry: Hormo luis felipe (if appli cable ): PAP EDUCA SAVANA L NOTE: The Pap Test is a scree hattie test with an inher ent false negat trace rate. Liqui d-bas ed sampl ing may decre ase, but will not elimi ian, false negat trace resul ts. A negat trace resul t does not precl ude the prese nce and/o r devel opmen t of disea se, since the prese nce of abnor mal cells in the sampl e depen ds on the locat ion of the lesio n and sampl ing techn ique. Venu nued regul ar scree hattie is the best metho d of cance r preve ntion . If repor eva cytol ogic findi ng do not corre late with physi berhane and/o r histo rical findi ngs, furth er inves tigat ion is recom charito d, as clini lupe jiménez nted. Not Available [facility] (Lab) [address] [facility], [place], [address], 04/26/2022 20:15:44 02/12/20 24 02/12/2024 WOMEN 'S HEALT H SWAB, YENY bacterial vaginosis (bv), tma Positi ve negati ve abnormal This test detec ts ribos omal RNA from bacte hari assoc iated with bacte rial vagin osis (BV), inclu ding Lacto bacil geneva (L. gasse ri, L. crisp atus and L. jense benson), Gardn erell a vagin [place], and Atopo bium vagin ae by Trans cript ion-M ediat ed Ampli ficat ion (TMA) . A singl e quali tativ e resul t is repor eva based on instr ument softw are to deter mine BV posit trace or negat trace statu s. Not Available [facility] (Lab) [address] [place], [address], 02/14/2024 05:54:38 02/12/20 24 02/12/2024 WOMEN 'S HEALT H SWAB, YENY vasu species, tma Negati ve negati ve Not Available [facility] (Lab) [address] [place], [address], 02/14/2024 05:54:38 02/12/20 24 02/12/2024 WOMEN 'S HEALT H SWAB, YENY vasu glabrata, tma Negati ve negati ve Not Available [facility] (Lab) [address] [place], [address], 02/14/2024 05:54:38 02/12/20 24 02/12/2024 WOMEN 'S HEALT H SWAB, YENY trichomonas vaginalis, tma Negati ve negati ve This assay tests for and diffe renti ates rebeccawe en Marylin da glabr lois, the Marylin da speci es group (C. albic ans, C. tropi calis , C. parap yogesh is, C. dubli niens is), and Trich omona s vagin [place] by Trans cript ion-M ediat ed Ampli ficat ion (TMA) . Not Available [facility] (Lab) [address] [place], [address], 02/14/2024 05:54:38 02/12/20 24 02/12/2024 CULTU RE: URINE result report SEE RESULT S BELOW Test: Cultu re: Urine Speci men Sourc e: Urine - Clean Catch Speci men Type: Urine Speci men Date: 02/11 1109 Resul t Date: 02/13 0448 Resul t Statu s: Final resul t Abnor mal: No Resul ting Lab: [facility] [address] [facility] [address] Tel: CULTU RE ----- ----- ----- --- No growt h in 1 day (dete ction level of 10,00 0 colon ies / ml.) Not Available [facility] (Lab) [address], [place], [address], 02/14/2024 05:54:39 02/12/20 24 02/12/2024 urina lysis , dipst ick Leukocytes trace Not Available [facility] [address], [place], [address], 02/12/2024 11:51:32 02/12/20 24 02/12/2024 urina lysis , dipst ick Nitrite - Not Available [place] [address], [place], [address], 02/12/2024 11:51:32 02/12/20 24 02/12/2024 urina lysis , dipst ick Urobilinogen - Not Available [facility] th[address], [place], [address], 02/12/2024 11:51:32 02/12/20 24 02/12/2024 urina lysis , dipst ick Protein trace Not Available [place] [address], [place], [address], 02/12/2024 11:51:32 02/12/20 24 02/12/2024 urina lysis , dipst ick pH 5 Not Available [place] [address], [place], [address], 02/12/2024 11:51:32 02/12/20 24 02/12/2024 urina lysis , dipst ick Specific [place] 1.020 Not Available [facility] meera [address], [place], [address], 02/12/2024 11:51:32 02/12/20 24 02/12/2024 urina lysis , dipst ick Ketone - Not Available [place] [address], [place], [address], 02/12/2024 11:51:32 02/12/20 24 02/12/2024 urina lysis , dipst ick Bilirubin - Not Available [facility] [address], [place], [address], 02/12/2024 11:51:32 02/12/20 24 02/12/2024 urina lysis , dipst ick Glucose 250 Not Available [place] [address], [place], [address], 02/12/2024 11:51:32 02/12/20 24 02/12/2024 urina lysis , dipst ick Appearance clear Not Available [facility] [place] [address], [place], [address], 02/12/2024 11:51:32 02/12/20 24 02/12/2024 urina lysis , dipst ick Color dark yellow Not Available [place] [address], [place], [address], 02/12/2024 11:51:32 02/20/20 24 02/20/2024 , pelartur s No observ ation record ed. [facility] [address], [place], [address], 02/20/2024 13:20:29 02/20/20 24 02/20/2024 , mayuri alves No observ ation record ed. [facility] [address], [place], [address], 02/20/2024 13:20:40 02/20/20 24 02/20/2024 US, pelvi s No observ ation record ed. [facility] [address], [place], [address], 02/21/2024 12:24:53 06/17/19 25 06/14/2024 MAMMO , scree hattie, digit al, bilat eral No observ ation record ed. [email or web address] [address] , [place], [address], 09/15/2024 12:03:48 Result Notes None recorded. Procedures Surgical History Date Name Laterality Status Provider Name and Address Organization Details Recorded Time 04/24/19 23 Date of Last Pap Smear completed Angélica Parra [facility] 02/12/2024 11:11:45 04/12/19 21 dual energy X-ray absorptiometry completed Promise Peralta [facility] [address], [place], [address], [facility] 04/22/2022 12:19:42 03/05/19 13 Date of Last Colonoscopy completed SHUBHAM RUVALCABA NP [address], [place], [address], [facility] 02/12/2024 11:24:16 01/10/20 11 colonoscopy completed Promise Peralta [facility] [address], [place], [address], [facility] 04/22/2022 12:19:20 12/22/18 90 section completed Nuris Fischer [facility] 04/22/2022 12:12:11 03/05/18 80 extraction of wisdom tooth completed Nuris Fischer [facility] 04/22/2022 12:12:47 Imaging Results None recorded. Procedure Notes None recorded. Medical Equipment None Reported. Allergies Allergen ID Allergen Name Allergen Category Reaction Reaction Severity Criticality Documentation Date Start Date Code Code System Note Provider Name and Address Organization Details Recorded Time lisinopri l medicatio n Not available Not available Not available 04/22/2022 65483 RxNorm Nuris Fischer [facility], [facility] 12:06:52 Medications Name Sig Start Date Stop Date Status Note LastModified by Organization Details LastModified Time atorvasta tin 40 mg tablet TAKE 1 TABLET BY MOUTH EVERY DAY active Not Available Not Available No t Available atorvasta tin 80 mg tablet take 1 tablet by oral route every day 04/22 completed Prescrib ed Elsewher e: Yes Loca tion: [facility] M odify By: vale Ansari r DateTime : 05/18/19 10:45:00 AM Not Available Not Available Not Available atorvasta tin 20 mg tablet TAKE 1 TABLET BY MOUTH EVERY DAY 02/11 completed Not Available Not Available Not Available metronida zole 500 mg tablet TAKE 1 TABLET BY MOUTH TWICE DAILY FOR 7 DAYS 02/21 completed Not Available Not Available Not Available chlorthal idone 25 mg tablet TAKE 1 TABLET BY MOUTH EVERY DAY active Not Available Not Available No t Available lisinopri l 40 mg tablet take 1 tablet by oral route every day 04/22 completed Prescrib ed Elsewher e: Yes Loca tion: [facility] M odify By: vale Lottte r DateTime : 05/18/19 10:45:00 AM Not Available Not Available Not Available nitrofura ntoin monohydra te/macroc rystals 100 mg capsule TAKE 1 CAPSULE BY MOUTH EVERY 12 HOURS FOR 7 DAYS 02/21 completed Not Available Not Available Not Available Vitals Date Recorded Systolic And Diastolic Provider Name and Address Organization Details Last Updated DateTime 04/22/2022 150/82 mm[Hg] Promise Peralta, [facility]- [address], [place], [address], [facility] 04/22/2022 12:24:14 Date Recorded Body height Body mass index (BMI) Body weight Provider Name and Address Organization Details Last Updated DateTime 04/22/2022 170.18 cm 27.1 kg/m2 68928.48 g Nuris Fischer [facility] 04/22/2022 12:06:37 Date Recorded Body height Body mass index (BMI) Body weight Systolic And Diastolic Provider Name and Address Organization Details Last Updated DateTime 02/12/2024 170.18 cm 25.7 kg/m2 16948.87 g 130/80 mm[Hg] Angélica Parra [facility] 02/12/2024 11:15:37 Date Recorded Body height Body mass index (BMI) Body weight Systolic And Diastolic Provider Name and Address Organization Details Last Updated DateTime 02/22/2024 170.18 cm 26.3 kg/m2 09556.52 g 144/83 mm[Hg] Alisha Borrego [facility] 02/22/2024 11:12:33 Social History Question Answer Notes LastModified by Organizat ion Details LastModified Time Tobacco Smoking Status Never Smoker Nuris de guzman, [facility] 04/22/2022 12:11:32 Are You Blind Or Do You Have Difficulty Seeing? No [email or web address] Information n ot available 04/22/2022 What Is Your Level Of Caffeine Consumption? Occasional [email or web address] Information not available 04/22/2022 In The 14 Days Before Symptom Onset, Have You Had Close Contact With A Laboratory-confirm ed COVID-19 While That Case Was Ill? No [email or web address] Information n ot available 04/22/2022 In The 14 Days Before Symptom Onset, Have You Had Close Contact With A Person Who Is Under Investigation For COVID-19 While That Person Was Ill? No [email or web address] Information not available 04/22/2022 Have You Been To An Area Known To Be High Risk For COVID-19? No [email or web address] Information not available 04/22/2022 Are You Deaf Or Do You Have Serious Difficulty Hearing? No [email or web address] Information not available 04/22/2022 What Type Of Diet Are You Following? REGULAR [email or web address] Information n ot available 04/22/2022 Have You Ever Been Counseled For Unhealthy Alcohol Use? No [email or web address] Information not available 04/22/2022 Do You Use Your Seat Belt Or Car Seat Routinely? Yes Information not available 04/22/2022 Do You Have Smoke And Carbon Monoxide Detectors In Your Home? Yes [email or web address] Information not available 04/22/2022 Do You Use Sunscreen Routinely? Yes [email or web address] Information not available 04/22/2022 Has Tobacco Cessation Counseling Been Provided? No [email or web address] Information not available 04/22/2022 Do You Have Difficulty Walking Or Climbing Stairs? No [email or web address] Information not available 04/22/2022 Sex: Unknown Functional Status Question Answer Note LastModified by Organizat ion Details LastModified Time Do you use any illicit or recreational drugs? No [email or web address] Information not available 04/22/2022 Do you or have you ever used any other forms of tobacco or nicotine? No [email or web address] Information not available 04/22/2022 What is your level of alcohol consumption? Occasional [email or web address] Information not available 04/22/2022 Are you able to walk independently without assistance or assistive devices? YESWOREST [email or web address] Information not available 04/22/2022 Are you able to care for yourself independently? Yes [email or web address] Information not available 04/22/2022 Do you have difficulty dressing, bathing, grooming, or toileting? No [email or web address] Information not available 04/22/2022 What is your exercise level? Occasional [email or web address] Information not available 04/22/2022 Mental Status Question Answer Note LastModified by Organization D etails LastModified Time Do you feel stressed (tense, restless, nervous, or anxious, or unable to sleep at night)? [id number] [email or web address] Information not available 04/22/2022 Family History Relationship Description Onset Age of this Age Resolved Age Notes LastModified by Organization Details LastModified Time Mother Diabetes mellitus [email or web address] Not available 04/22 12:09:55 Mother Hypertensive disorder [email or web address] Not available 04/22 12:10:15 Father Hypertensive disorder [email or web address] Not available 04/22 12:10:15 Father Disorder of cardiovascul ar system [email or web address] Not available 04/22 12:10:38 Paternal Uncle Hypertensive disorder [email or web address] Not available 04/22 12:10:15 Maternal Uncle Hypertensive disorder [email or web address] Not available 04/22 12:10:15 Maternal Grandmother Malignant neoplasm of uterus [email or web address] Not available 04/22 12:10:49 Maternal Aunt Malignant neoplasm of breast [email or web address] Not available 04/22 12:10:56 Maternal Aunt Malignant neoplasm of lung [email or web address] Not available 04/22 12:11:08 Notes:Father: Cardiovascular disease, Hypertension Maternal aunt: Cancer, lung, Cancer, breast Maternal grandmother: Cancer, uterine Maternal uncle: Hypertension Mother: Diabetes mellitus, Hypertension Paternal uncle: Hypertension Medical History Condition Response Allergies (Food, seasonal, environmental ) N Other N Drug/Latex Allergies/Reactions N Blood Transfusion N Breast Cancer N Dermatologic Disorders N Lung Disease N Defects or Inherited Disease N Breast Problem N Gestational Diabetes N Hematologic disorders N Anesthesia Complications N History of STI N Deep Vein Thrombosis N Polycystic ovary syndrome N Anxiety Disorder N Autoimmune disease N Arthritis N Polyps N Infertility N Acid Reflux (GERD) N History of abnormal pap N Cancer N Varicosities N Stroke N Neurologic/Epilepsy N Endometriosis N High Cholesterol Y Fibromyalgia N Headaches N Kidney Disease N Heart Problems N Thyroid Problems N Kidney or Bladder Problems N GI Problems N Eating Disorder N Anemia N Art (IVF or FET) N Psychiatric Illness N Ovarian Cancer N Diabetes N Pulmonary (TB, Asthma) N Hepatitis/Liver Disease N No Past Medical History N Eczema N Urinary Tract Infection N Abuse/Domestic Violence N Asthma N Trauma/Violence N Depression/ depression N Heart Disease N Pre-Eclampsia N Hypertension Y Osteoporosis N Thrombophilias N Gynecological History Statement/Question Response If Post Menopausal, Age at Menopause 52 Date of Last Mammogram Date of Last Colonoscopy 03/05/2012 Date of LMP 03/05/2012 Date of Last Pap Smear 04/24/2022 Current Control Method Menopause LMP Approximate Obstetrics History GPAL:G 3 P 3 0 0 3 Type Value Full Term 3 Living 3 Total 3 Past Encounters Encounter ID Performer Location Encounter Start Date Encounter Closed Date Diagnosis/Indication Diagnosis SNOMED-CT Code Diagnosis ICD10 Code Diagnosis IMO Codes Diagnosis Note [id number] [facility] [address] [address] 04/22/2022 11:48:21 04/22/2022 12:27:28 Gynecologic examination 15007747 Z01.419 Take Calcium with Vitamin D 12-1500mg daily. Do monthly self breast exams. It is advised to get annual flu shot in the fall and she could obtain at [facility] or [facility] care clinic. If you haven't received the Tdap vaccine in the last 10 years you should obtain one as well. Have mammogram yearly, bone density every 2-3 years and colonoscop y every 5-10 years depending on findings and history. Engage in daily exercise of low impact aerobic exercise 45-60 minutes 4-5 times weekly. Avoid tobacco and illicit drugs as well as using moderation with alcohol intake less than 1-2 8 oz beverages daily. This lifestyle behavior pattern will lead to less health conditions and longer life span. If BMI greater than 25 weight watchers or dietary consult advised. Questions have been answered. Patient appears to understand instructio ns, but if you have any further questions call or respond to this email Pap/hpv sentSTD Screen declinedGe netic Screen discussedC olon Screen PCP has scheduledD exa Screen PCP [facility] PCP managedMam mo completed 2022-Ashish ry WNL per ptHTNick oneill managed by PCP. Had two recent bad rxn's to HTN meds so they are trying to determine the right one for her per pt. Screening mammography 24 295469 Z12.31 [id number] Enoch Becerra MD [place] [address] [address] 02/12/2024 11:02:19 02/12/2024 13:42:52 Gynecologic examination 52612263 Z01.419 Annual gynecologi berhane exam performed. Patient will come back in a year unless there are new symptoms. Suggest Calcium with Vitamin D if not eating in diet. Patient advised to get annual flu shot. Recommend yearly physicals and perform monthly breast exams. Genetic testing is available for patients with family history of cancer. Engage in safe sexual practices, use condoms. Encouraged to have daily exercise. Avoid tobacco and illicit drugs, moderation of alcohol. If BMI greater than 25 dietary consult advised. If you have any questions please call or email. mammogram- order given; pt to schedule colon cancer screening - GI referral to [facility] for colonoscop y - DUE DEXA scan- will screen by age 65 per guidelines Pap smear- UTD (2022 - WNL), will repeat per ASCCP guidelines or sooner if indicated laboratory evaluation - PCP STI testing - declined Screening mammography 24 319462 Z12.31 Vaginal discharge 575185 006 N89.8 Will r/o vaginal infection due to discharge noted on exam.Vagin itis panel sent.Discu ssed vulvar care guidelines in addition to laundry/sk in irritants to avoid. Postmenopa usal bleeding 75297166 N95.0 Discussed possible causes of post-menop ausal bleeding, including polyps, cervical dysplasia, endometria l hyperplasi a or malignancy , and atrophy. Discussed importance of ruling out uterine abnormalit ies/malign chloé with pelvic ultrasound and endometria l biopsy. Patient declined EMB today, prefers to have pelvic ultrasound first due to discomfort on today's pelvic exam. Pt to [facility] for pelvic ultrasound and abnormal bleeding follow-up with Dr. Mccormick (prefers female provider) for EMB.Patien t verbalized understand ing and agreement of plan of care. Urinary symptoms 6194941 08 R39.9 Patient presents with symptoms of UTI. Will send urine for culture.Ad vised to drink clear fluids, Tylenol for pain and take prescribed medication s as instructed . Patient encouraged to follow up within 1 week if not improving. Screening for malignant neoplasm of colon 967869602 Z12.11 [id number] Enoch Becerra MD [place] [address] [address] 02/20/2024 12:22:44 02/20/2024 13:50:39 Postmenopausal bleeding 74189253 N95.0 [id number] DUDLEY MCCORMICK MD [place] [address] [address] 02/22/2024 11:00:10 02/25/2024 12:08:52 Endometrial polyp 3527449909 N84.0 - patient reports irregular and light bleeding for the past 2-3 months- currently resolved- no inciting events- pelvic US demonstrat es two possibl polyps, one cervical and one endometria l- discussed recommenda tion for polyp removal, given likely source of bleeding, as well as that these are unlikely to resolve on their own- discussed risks of surgery, including bleeding, infection, and injury to adjacent structures - patient voices understand ing- will proceed with hysterosco py, polypectom y and [facility] Health Concerns Section Related Observation LastModified by Organization Detai ls LastModified Time None Recorded Concern Status LastModified by Organization Details LastModified Time None Recorded Advance Directives Directive None Recorded Payers Insurance Date Sequence Insurance Name Policy Number Policy [place] Covered Member ID [place] Member ID Guarantor Name 03/14/2024 1 ISSA [id number] Jazzmine Keyes [id number] 1 Jazzmine Keyes Notes Date Note Type Note Provider Name and Address Organization Details Recorded Time 3 text/html Annual Rn Advanced Post-MenopausalReported by PatientGenitourinary symptomsFor menopausal symptoms, patient reportsno menopausal symptomsandnormal vaginal lubrication. For vaginal bleeding, patient reportshistory of menopause having occurredandno history of post menopausal bleeding. For urinary symptoms, patient reportsno hematuria,no incontinence,no nocturia, andno urinary frequency. For vulva, patient reportsno genital lesionandno vulvar atrophy. For vagina, patient reportsnormal vaginal dischargeandno vaginal atrophy.Breast symptomsFor breast, patient reportsno breast lump,no nipple discharge, andno breast pain.Psychological symptomsFor sexual complaints, patient reportsno sexual complaints. For psychological symptoms, patient reportsno depressionandno anxiety.Preventative measuresFor preventive measures, patient reportsencourage regular mammograms starting age 40,encourage self breast examination,encourage regular exercise,encourage no tobacco use,mammogram performed within the past year,needs to schedule mammogram,needs to schedule colonoscopy, andneeds to schedule bone density. Promise Peralta, [facility]- [address], [place], [address], [facility] 04/22/2022 12:26:27 4 text/html Annual Rn Advanced Post-MenopausalReported by PatientGenitourinary symptomsFor vaginal bleeding, patient reportsunexplained vaginal bleedingandpost menopausal bleeding. For urinary symptoms, patient reportsurine odorandburning sensation during urinationbut reportsno hematuria,no incontinence,no nocturia, andno urinary frequency. For vulva, patient reportsatrophic vulvabut reportsno genital lesion. For vagina, patient reportsatrophic vaginaandwhite. For menopausal symptoms, patient reportsno menopausal symptomsandnormal vaginal lubrication.Breast symptomsFor breast, patient reportsno breast lump,no nipple discharge, andno breast pain.Psychological symptomsFor sexual complaints, patient reportsno sexual complaints. For psychological symptoms, patient reportsno depressionandno anxiety.Preventative measuresFor preventive measures, patient reportsencourage regular mammograms starting age 40,encourage self breast examination,encourage regular exercise, andencourage no tobacco use. Patient here for annual well woman exam.Patient c/o dysuria, urine odor intermittently for several months. Patient denies urinary frequency or urgency, and has not been tested for UTI.Patient also states that she has noticed vaginal bleeding approximately four months ago that was enough blood to soak a pad. Patient states that the bleeding is now intermittent and spotting. Patient is post-menopausal (last period 10 yrs ago). Patient states that she has never had PMB before.Patient also reports vaginal discharge.Patient denies pelvic pain, fever, GI sx.Patient states that she is not sexually active.Hx normal pap smears. SHUBHAM RUVALCABA NP [address], [place], [address], [facility] 02/12/2024 13:31:24 4 text/html Patient presents for evaluation of postmenopausal bleeding. She reports the bleeding is very irregular, started 2-3 months ago. The bleeding is now resolved, however was light and did not require regular pad usage. She has not had a period in about 10 years. She denies inciting events. No new medications. No postcoital bleeding. DUDLEY MCCORMICK MD [address], [place], [address], [facility] 02/24/2024 23:56:30 OBGyn Episode Ob Episode Information Episode Created Date Number of Fetuses Patient Bloodtype Patient rh Status Prepregnancy Weight lbs Domestic Partner Domestic Partner Phone Father Name International Relations Teacher Status 04/22/19 23 1 CLOSED Fetus Data First Name Last Name Admitted to NICU Weight (g) Sex Living Outcome Pediatric Complications Fetus ID Race Codes Race Delivery Type 3231.84 3 F Full Term [id number] Primary Landen Calculation Initial Landen Date Initial Exam Date Initial Exam Provider Initial Ultrasound Date Last Menstrual Period Date Ultra Sound Weeks Gestation 0 Eighteen To Twenty Week Landen Update Ultra Sound Date Fundal Height At Umbil Quickening Date Ultra Sound Latest Weeks Gestation Final Landen Confirmed By Final Landen Confirmed Date Final Landen Date Ultra Sound Latest Days Gestation 0 0 Menstrual History Last Menstrual Date Menses Monthly On Bcp Conception Prior Menses Frequency Hcg Plus Date Menarche Onset Age Delivery Information Delivery Date Delivery Type Labor Anesthesia Weeks Gestation Incision Type Labor Labor Length Hrs Delivered By Post Complications Tubal Sterilization Discharge Date Comments 0 40 Discharge Information Feeding Method Contraceptive Method Maternal HG B and HCT Levels Ob Episode Information Episode Created Date Number of Fetuses Patient Bloodtype Patient rh Status Prepregnancy Weight lbs Domestic Partner Domestic Partner Phone Father Name International Relations Teacher Status 04/22/19 23 1 CLOSED Fetus Data First Name Last Name Admitted to NICU Weight (g) Sex Living Outcome Pediatric Complications Fetus ID Race Codes Race Delivery Type 3316.66 4704 M Full Term [id number] V Back Landen Calculation Initial Landen Date Initial Exam Date Initial Exam Provider Initial Ultrasound Date Last Menstrual Period Date Ultra Sound Weeks Gestation 0 Eighteen To Twenty Week Landen Update Ultra Sound Date Fundal Height At Umbil Quickening Date Ultra Sound Latest Weeks Gestation Final Landen Confirmed By Final Landen Confirmed Date Final Landen Date Ultra Sound Latest Days Gestation 0 0 Menstrual History Last Menstrual Date Menses Monthly On Bcp Conception Prior Menses Frequency Hcg Plus Date Menarche Onset Age Delivery Information Delivery Date Delivery Type Labor Anesthesia Weeks Gestation Incision Type Labor Labor Length Hrs Delivered By Post Complications Tubal Sterilization Discharge Date Comments 2 40 Discharge Information Feeding Method Contraceptive Method Maternal HG B and HCT Levels Ob Episode Information Episode Created Date Number of Fetuses Patient Bloodtype Patient rh Status Prepregnancy Weight lbs Domestic Partner Domestic Partner Phone Father Name International Relations Teacher Status 04/22/19 23 1 CLOSED Fetus Data First Name Last Name Admitted to NICU Weight (g) Sex Living Outcome Pediatric Complications Fetus ID Race Codes Race Delivery Type 3685.43 5 F Full Term [id number] V Back Landen Calculation Initial Landen Date Initial Exam Date Initial Exam Provider Initial Ultrasound Date Last Menstrual Period Date Ultra Sound Weeks Gestation 0 Eighteen To Twenty Week Landen Update Ultra Sound Date Fundal Height At Umbil Quickening Date Ultra Sound Latest Weeks Gestation Final Landen Confirmed By Final Landen Confirmed Date Final Landen Date Ultra Sound Latest Days Gestation 0 0 Menstrual History Last Menstrual Date Menses Monthly On Bcp Conception Prior Menses Frequency Hcg Plus Date Menarche Onset Age Delivery Information Delivery Date Delivery Type Labor Anesthesia Weeks Gestation Incision Type Labor Labor Length Hrs Delivered By Post Complications Tubal Sterilization Discharge Date Comments 8 40 Discharge Information Feeding Method Contraceptive Method Maternal HG B and HCT Levels
--- OUTSIDE RECORDS SUMMARY | 2025-02-24 03:56 | XMS_ITS | Clinical Summary ---
Author Organization [facility] Address [address] [place] [address] Phone Care Team Providers Care Assignment Manager Name Role Phone MYRTLE SUÁREZ MD Unavailable [phone] Reason for Visit and Chief Complaint PELVIC W/TVT Problems Includes: Problems addressed during this encounter and other active Problems All Visits Onset Date Resolved Date Provider Condition S tatus Hyperlipidemia 11/12/2013 SARAH BETH HOUSE [facility] Active Last Documented On 4 2:19PM ; [facility] Transient Ischemic Attack (Tia) 11/12/2013 MARIA L HOUSE NP-BC Active Last Documented On 4 2:19PM ; [facility] Hypertension Systemic 09/06/2012 STAN FERNANDES MD Active Last Documented On 3 10:17AM ; [facility] Plan of Treatment No Plan of Treatment Recorded Assessments Includes: Assessments from this encounter No Assessments Recorded Medical Equipment - Implanted Devices Includes: Current Devices No Medical Equipment Recorded Medications Includes: Medications discussed during this encounter and other current Medications Current Medications (continue as prescribed) DHA [place] 3 100MG Oral Capsule 03/06/2017 Provider: Diagnosis: Last Documented On 03/06/2017 9:56AM By Maria Antonia Gregory MA ; [facility] B Complex Vitamins Oral Capsule, conventional 01/31/20 17 Provider: Diagnosis: Last Documented On 01/30/2017 3:37PM By Maria Antonia Gregory MA ; [facility] Simvastatin 5 MG Tablet 11/20/2014 Provider: Diagnosis: Last Documented On 11/20/2014 2:01PM By DALILA FORBES ; [facility] Lisinopril 10 MG OR TABS 12/12/2013 Provider: Diagnosis: Last Documented On 12/12/2013 8:49AM By DALILA FORBES ; [facility] Go MultiVitamin OR POWD 12/12/2013 Provider: Diagnosis: Last Documented On 12/12/2013 8:49AM By DALILA FORBES ; [facility] Medications Administered Includes: Administered Medications [...] Location Date Check-In Time Check-Out Time Diagnosis PELVIC W/TVT STAN FERNANDES MD [facility] TECHNICAL SALES MANAGER 7 2:02PM 2:28PM Insurance Includes: Active Insurance Policies Plan Name Member ID Group # Subscriber Relationship Effect trace Dates - [id number] GILBERTO Milan PASBRENNAN Self Clinical Notes Includes: Clinical Notes from this encounter No Clinical Notes Recorded
--- OUTSIDE RECORDS SUMMARY | 2025-02-24 03:56 | XMS_ITS ---
Author Organization [facility] Address [address] [place] [address] Phone Care Team Providers Care Associate Director Of Biostatistics Name Role Phone MYRTLE SUÁREZ MD Unavailable [phone] Problems Includes: Active, inactive, and resolved Problems All Visits Onset Date Resolved Date Provider Condition S tatus Hyperlipidemia 11/12/2013 SARAH BETH HOUSE WHNP-BC Active Last Documented On 4 2:19PM ; [facility] Transient Ischemic Attack (Tia) 11/12/2013 MARIA L Singh Kayli HARSH WHNP-BC Active Last Documented On 4 2:19PM ; [facility] Hypertension Systemic 09/06/2012 STAN FERNANDES MD Active Last Documented On 3 10:17AM ; [facility] Plan of Treatment Findings Encounter Date Ordered Clinical summary pro vided to patient ANNUAL DATA SCIENCE AND IOT MANAGER EXAM with SARAH BETH HOUSE WHNP-BC 11/20/2014 Last Documented On 5 2:11PM ; [facility] Ordered follow-up visit 1 ye ar or as needed ANNUAL DATA SCIENCE AND IOT MANAGER EXAM with SARAH BETH HOUSE WHNP-BC 11/20/2014 Last Documented On 5 2:11PM ; [facility] Ordered Clinical summary pro vided to patient NURSE CHEMICAL DEPENDENCY EXAM with SARAH BETH HOUSE WHNP-BC 11/12/2013 Last Documented On 4 2:26PM ; [facility] Ordered follow-up visit 1 ye ar or as needed NURSE CHEMICAL DEPENDENCY EXAM with SARAH BETH HOUSE WHNP-BC 11/12/2013 Last Documented On 4 2:26PM ; [facility] Instructions to patient Instructions for patient : B reast Self Exam discussed Last Documented On 7 3:39PM ; [facility] Instructions for patient : B reast Self Exam discussed Last Documented On 5 1:53PM ; [facility] Colonoscopy Handout given to patient Last Documented On 5 1:54PM ; [facility] Instructions for patient :Ad vised to call if any further episodes of vaginal bleeding/menses. Screening mammogram due 3--15 Last Documented On 4 8:46AM ; [facility] Instructions for patient : B reast Self Exam discussed Last Documented On 4 2:09PM ; [facility] Colonoscopy Handout given to patient Last Documented On 4 2:11PM ; [facility] Instructions for patient : B reast Self Exam discussed Last Documented On 3 10:26AM ; [facility] Instructions for patient : B reast Self Exam discussed Last Documented On 1 11:49AM ; [facility] Education and Decision Aids were provided during visit for: STD screening offered and de clined Last Documented On 7 3:39PM ; [facility] Bone Mineral Density Screeni ng guidelines reviewed Last Documented On 7 3:39PM ; [facility] Patient Education: Daily berhane cium and vitamin D Last Documented On 7 3:39PM ; [facility] Patient Education: weight be aring exercise Last Documented On 7 3:39PM ; [facility] Colonoscopy screening guidel jacklyn discussed Last Documented On 7 3:39PM ; [facility] Patient Education: Daily berhane cium and vitamin D Last Documented On 5 1:53PM ; [facility] Patient Education: weight be aring exercise Last Documented On 5 1:53PM ; [facility] Patient Education: Daily berhane cium and vitamin D Last Documented On 4 2:09PM ; [facility] Patient Education: weight be aring exercise Last Documented On 4 2:09PM ; [facility] STD screening offered and de clined Last Documented On 3 10:26AM ; [facility] Bone Mineral Density Screeni ng guidelines reviewed Last Documented On 3 10:26AM ; [facility] Patient Education: Daily berhane cium and vitamin D Last Documented On 3 10:26AM ; [facility] Patient Education: weight be aring exercise Last Documented On 3 10:26AM ; [facility] Colonoscopy screening guidel jacklyn discussed Last Documented On 3 10:26AM ; [facility] STD screening offered and de clined Last Documented On 1 11:49AM ; [facility] Bone Mineral Density Screeni ng guidelines reviewed Last Documented On 1 11:49AM ; [facility] Patient Education: Daily berhane cium and vitamin D Last Documented On 1 11:49AM ; [facility] Patient Education: weight be aring exercise Last Documented On 1 11:49AM ; [facility] Colonoscopy screening guidel jacklyn discussed Last Documented On 1 11:49AM ; [facility] Assessments Includes: Assessments for all patient encounters Findings Encounter Date Postmenopausal bleeding ENDOMETRIAL BIOPSY with STAN FERNANDES MD 03/06/2017 Last Documented On 8 10:19AM ; [facility] Postmenopausal bleeding ANNUAL DATA SCIENCE AND IOT MANAGER EXAM with HARLAN FERNANDES MD 01/30/2017 Last Documented On 7 3:57PM ; [facility] Routine pelvic exam ANNUAL DATA SCIENCE AND IOT MANAGER EXAM with STAN FERNANDES MD 01/30/2017 Last Documented On 7 3:57PM ; [facility] Screening Malig. Neoplasm Rectum ANNUAL DATA SCIENCE AND IOT MANAGER EXAM with STAN FERNANDES MD 01/30/2017 Last Documented On 7 3:57PM ; [facility] NORMAL FEMALE EXAM ANNUAL DATA SCIENCE AND IOT MANAGER EXAM with SARAH BETH HOUSE [facility] 11/20/2014 Last Documented On 5 2:11PM ; [facility] Screening Malig. Neoplasm Rectum ANNUAL DATA SCIENCE AND IOT MANAGER EXAM with SARAH BETH HOUSE [facility] 11/20/2014 Last Documented On 5 2:11PM ; [facility] Contraceptive surveillance PROCEDURE OFFICE with SARAH BETH HOUSE NP-BC 12/12/2013 Last Documented On 4 8:59AM ; [facility] NORMAL FEMALE EXAM NURSE CHEMICAL DEPENDENCY EXAM with SARAH BETH Hines [facility]- 11/12/2013 Last Documented On 4 2:26PM ; [facility] Screening Malig. Neoplasm Rectum NURSE CHEMICAL DEPENDENCY EXAM with Lucy HOUSE [facility]- 11/12/2013 Last Documented On 4 2:26PM ; [facility] Contraceptive management NURSE CHEMICAL DEPENDENCY EXAM with STAN HERNÁNDEZ MD 09/06/2012 Last Documented On 3 10:39AM ; [facility] Routine pelvic exam NURSE CHEMICAL DEPENDENCY EXAM with STAN FERNANDES MD 09/06/2012 Last Documented On 3 10:39AM ; [facility] Screening Malig. Neoplasm Rectum NURSE CHEMICAL DEPENDENCY EXAM with Sebastian FERNANDES MD 09/06/2012 Last Documented On 3 10:39AM ; [facility] Menometrorrhagia NURSE CHEMICAL DEPENDENCY EXAM with STAN FERNANDES MD 10/26/2010 Last Documented On 1 11:54AM ; [facility] Routine pelvic exam NURSE CHEMICAL DEPENDENCY EXAM with STAN FERNANDES MD 10/26/2010 Last Documented On 1 11:54AM ; [facility] Screening Malig. Neoplasm Rectum NURSE CHEMICAL DEPENDENCY EXAM with Sebastian FERNANDES MD 10/26/2010 Last Documented On 1 11:54AM ; [facility] Instructions Includes: Instructions for all patient encounters Instructions to patient Instructions for patient : B reast Self Exam discussed Last Documented On 7 3:39PM ; [facility] Instructions for patient : B reast Self Exam discussed Last Documented On 5 1:53PM ; [facility] Colonoscopy Handout given to patient Last Documented On 5 1:54PM ; [facility] Instructions for patient :Ad vised to call if any further episodes of vaginal bleeding/menses. Screening mammogram due 315 Last Documented On 4 8:46AM ; [facility] Instructions for patient : B reast Self Exam discussed Last Documented On 4 2:09PM ; [facility] Colonoscopy Handout given to patient Last Documented On 4 2:11PM ; [facility] Instructions for patient : B reast Self Exam discussed Last Documented On 3 10:26AM ; [facility] Instructions for patient : B reast Self Exam discussed Last Documented On 1 11:49AM ; [facility] Education and Decision Aids were provided during visit for: STD screening offered and de clined Last Documented On 7 3:39PM ; [facility] Bone Mineral Density Screeni ng guidelines reviewed Last Documented On 7 3:39PM ; [facility] Patient Education: Daily berhane cium and vitamin D Last Documented On 7 3:39PM ; [facility] Patient Education: weight be aring exercise Last Documented On 7 3:39PM ; [facility] Colonoscopy screening guidel jacklyn discussed Last Documented On 7 3:39PM ; [facility] Patient Education: Daily berhane cium and vitamin D Last Documented On 5 1:53PM ; [facility] Patient Education: weight be aring exercise Last Documented On 5 1:53PM ; [facility] Patient Education: Daily berhane cium and vitamin D Last Documented On 4 2:09PM ; [facility] Patient Education: weight be aring exercise Last Documented On 4 2:09PM ; [facility] STD screening offered and de clined Last Documented On 3 10:26AM ; [facility] Bone Mineral Density Screeni ng guidelines reviewed Last Documented On 3 10:26AM ; [facility] Patient Education: Daily berhane cium and vitamin D Last Documented On 3 10:26AM ; [facility] Patient Education: weight be aring exercise Last Documented On 3 10:26AM ; [facility] Colonoscopy screening guidel jacklyn discussed Last Documented On 3 10:26AM ; [facility] STD screening offered and de clined Last Documented On 1 11:49AM ; [facility] Bone Mineral Density Screeni ng guidelines reviewed Last Documented On 1 11:49AM ; [facility] Patient Education: Daily berhane cium and vitamin D Last Documented On 1 11:49AM ; [facility] Patient Education: weight be aring exercise Last Documented On 1 11:49AM ; [facility] Colonoscopy screening guidel jacklyn discussed Last Documented On 1 11:49AM ; [facility] Medical Equipment - Implanted Devices Includes: Current and historical Devices No Medical Equipment Recorded Medications Includes: Current and historical Medications Current Medications (continue as prescribed) DHA [place] 3 100MG Oral Capsule 03/06/2017 Provider: Diagnosis: Last Documented On 03/06/2017 9:56AM By Maria Antonia Gregory MA ; [facility] B Complex Vitamins Oral Capsule, conventional 01/31/20 17 Provider: Diagnosis: Last Documented On 01/30/2017 3:37PM By Maria Antonia Gregory MA ; [facility] Simvastatin 5 MG Tablet 11/20/2014 Provider: Diagnosis: Last Documented On 11/20/2014 2:01PM By DALILA FORBES ; [facility] Lisinopril 10 MG OR TABS 12/12/2013 Provider: Diagnosis: Last Documented On 12/12/2013 8:49AM By DALILA FORBES ; [facility] Go MultiVitamin OR POWD 12/12/2013 Provider: Diagnosis: Last Documented On 12/12/2013 8:49AM By DALILA FORBES ; [facility] Past Medications on file Paragard Intrauterine Copper IU IUD 10/16/2008 - 12/12 Provider: Diagnosis: REMOVE NO LATER THAN 10/16/18 Last Documented On 12/12/2013 8:49AM By DALILA FORBES ; [facility] Levora 0.15/30 (28) 0.15-30 MG-MCG OR TABS 04/19/2007 - 04/13/2008 Provider: Diagnosis: Last Documented On 03/26/2009 10:15AM By JUNIOR DAVIS ; [facility] Ortho Tri-Cyclen (28) 0.18/0 .215/0.25 MG-35 MCG OR TABS 03/28/2007 - 03/22/2008 Provider: Diagnosis: Last Documented On 03/26/2009 10:15AM By JUNIOR DAVIS ; [facility] Levora 0.15/30 (28) 0.15-30 MG-MCG OR TABS 01/23/2006 - 04/23/2006 Provider: Diagnosis: Last Documented On 03/26/2009 10:17AM By JUNIOR DAVIS ; [facility] Levora 0.15/30 (28) 0.15-30 MG-MCG OR TABS 06/26/2005 - 07/26/2005 Provider: Diagnosis: Last Documented On 03/26/2009 10:18AM By JUNIOR DAVIS ; [facility] Medications Administered Includes: Administered Medications in patient's chart No Administered Medications Recorded Results Includes: Results from 02/25/2024 through 02/24/2025 No Results Recorded For Specified Dates History of Present Illness History of Present Illness not supported for this document type No History of Present Illness Recorded Social History Description Last Updated In monogamous relationship 03/06/2017 Last Documented On 8 10:19AM ; [facility] Alcohol use: 2 drinks or less per day no ne 03/06/2017 Last Documented On 8 10:19AM ; [facility] Not sexually active 03/06/2017 Last Documented On 8 10:19AM ; [facility] Non-smoker 03/06/2017 Last Documented On 8 10:19AM ; [facility] Smoking Status Unknown Medical History Includes: Medical History in patient's chart Description Last Updated Not using contraception none 03/06/2017 Last Documented On 8 10:19AM ; [facility] Result: normal Has one today at 3:30 04/2017 Last Documented On 8 10:19AM ; [facility] 3 03/06/2017 Last Documented On 8 10:19AM ; [facility] Last mammogram date: 08/14/2015 8 Last Documented On 8 10:19AM ; [facility] Last pap smear date 01/30/2017 8 Last Documented On 8 10:19AM ; [facility] LMP: 201203/06/2017 Last Documented On 8 10:19AM ; [facility] Para 3 03/06/2017 Last Documented On 8 10:19AM ; [facility] A colonoscopy was performed 2012 017 Last Documented On 7 3:57PM ; [facility] History of menopause 01/30/2017 Last Documented On 7 3:57PM ; [facility] Result: normal 01/30/2017 Last Documented On 7 3:57PM ; [facility] History of benign essential hypertension 11/20/2014 Last Documented On 5 2:11PM ; [facility] History of hyperlipidemia 10/26/2010 Last Documented On 1 11:54AM ; [facility] Family History Includes: Family History in patient's chart Description Last Updated Maternal history of hypertension momcomfort 11/20/2014 Last Documented On 5 2:11PM ; [facility] Fraternal history of hypercholesterolemi a 11/20/2014 Last Documented On 5 2:11PM ; [facility] Maternal aunt's history of malignant fem faviola breast neoplasm maternal aunt 11/20/2014 Last Documented On 5 2:11PM ; [facility] Maternal grandmother's history of diabet es mellitus maternal grandmother 11/20/2014 Last Documented On 5 2:11PM ; [facility] Spouse name: Jose 11/12/2013 Last Documented On 4 2:26PM ; [facility] Family history of heart disease fathers side 11/12/2013 Last Documented On 4 2:26PM ; [facility] Family history of hypertension momwilian 11/12/2013 Last Documented On 4 2:26PM ; [facility] Family history of malignant female breas t neoplasm maternal aunt 11/12/2013 Last Documented On 4 2:26PM ; [facility] Family history of diabetes mellitus mate rnal grandmother 09/06/2012 Last Documented On 3 10:39AM ; [facility] Family history unchanged 09/06/2012 Last Documented On 3 10:39AM ; [facility] Review of Systems Review of Systems not supported for this document type No Review of Systems Recorded Mental Status Description No anxiety Functional Status No Functional Status Recorded Physical Exam Physical Exam not supported for this document type No Physical Exam Recorded Allergies Includes: Active, inactive, and resolved Allergies No Known Allergies Insurance Includes: Active Insurance Policies Plan Name Member ID Group # Subscriber Relationship Effect trace Dates 1 - [facility] [id number] GILBERTO CALVILLO Self Clinical Notes Includes: Signed Clinical Notes starting from 03/24/2022 No Clinical Notes Recorded
[2025-02-24 10:35] VITALS: BP 140/76; PULSE 72; RESP 17; TEMP 36.4; O2SAT 100; BMI 24.7
--- NOTE | 2025-02-24 10:37 | WPDANESEPPF ---
Anes - Initial Pre Proc Eval Procedure: Operation Date: 02/24/25 11:30 Proposed Procedures p Screening Colonoscopy - Crescencio Alexander DO Date/Time: 02/24/25 10:37 Surgeon: Crescencio Alexander DO Pre Op Diagnosis: screening for malignant neoplasm of colon Patient Data Age: 64 Gender: F Height: 1.7 m Weight: 68 kg Allergies Allergy/AdvReac Type Severity Reaction Status Date / Time hydrochlorothiazide Allergy Swelling Verified 02/16/25 15:20 of Lip/Tongue/Throat lisinopril Allergy Swelling Verified 02/16/25 15:20 of Lip/Tongue/Throat Home Medications ?Medication ?Instructions ?Recorded ?Confirmed ?Type omega 3 35 mg-dha 25 mg-epa 5 2 tablet PO DAILY 11/04/20 02/24/25 History mg-fish oil 113.5 mg chewable tablet ([facility] [place]-3 Gummy Fish) lutein 20 mg capsule 20 mg PO DAILY 12/13/20 02/16/25 History chlorthalidone 25 mg tablet 25 mg PO DAILY #90 tabs 09/15/24 02/24/25 Rx blood sugar diagnostic (OneTouch #100 ea 09/30/24 01/20/25 Rx Verio test strips) blood-glucose meter (OneTouch #1 ea 09/30/24 01/20/25 Rx Verio Flex Start kit) lancets 31 gauge (Comfort Touch #100 ea 09/30/24 01/20/25 Rx Ultra Thin Lancets) metformin 500 mg tablet 500 mg PO BID 12/31/24 02/24/25 History atorvastatin 40 mg tablet 40 mg PO QPM #90 tabs 01/20/25 02/24/25 Rx glimepiride 1 mg tablet 1 mg PO QAM #90 tabs 01/20/25 02/24/25 Rx Laboratory Tests 02/24/25 10:32 POC Capillary Glucose 127 H mg/dl (65-105) Patient hx anesthesia problems: none Family hx anesthesia problems: none Results Review: All pre-operative results and documents have been reviewed as part of the pre-operative evaluation. [facility] Past Medical History Medical History Left ureteral calculus 02/2020 Nephrolithiasis Prediabetes Essential (primary) hypertension 12/18/2017 Dyslipidemia 12/18/2017 Surgical History Surgical History Hx of colonoscopy 01/2011 History of cystoscopy 02/21 - for left ureteral stone extraction [place] teeth extracted (~1981) Hx of section (~1979) 1989 Family History Family History Sibling , Descending artery was blocked Heart attack Family history of coronary artery disease Hypertension Mother Family history of aortic aneurysm Dementia Father FH: CABG (coronary artery bypass surgery) Social History Social History Smoking status: Never smoker Second hand tobacco smoke exposure: No Alcohol intake: never Drinks per week: 1 Alcohol use details: consumes 1 glass of wine weekly Substance use: never Substance use type: does not use Living arrangements: with family Gender identity (if verbalized by the patient): Female Sexual Orientation (if Verbalized by the Patient): Straight or Heterosexual Spiritual care concerns: No Anes - Eval Final PreProcedure Day of Procedure 02/24/25 10:37 Patient weight: normal Heart: regular rate and rhythm Lungs: clear to auscultation Airway: Mallampati scale class II Neurological: alert and oriented Last oral intake: >/= 8 hours ASA classification: III Emergent: no Anesthetic plan: proceed Anesthesia type and monitoring: general GIVS and standard monitoring Results Review: All pre-operative results and documents have been reviewed as part of the pre-operative evaluation. Informed Consent: The patient's anesthetic plan and its attendant risks and benefits were discussed with the patient/family/POA. Questions were solicited and answers provided to the satisfaction of the patient/family/POA.
[2025-02-24] MEDS: LACTATED RINGERS 1,000 ML 150 ML IV CONT (10:44)
--- NOTE | 2025-02-24 11:01 | PM.IMHP2 ---
H&P: HPI History of Present Illness Date/Time: 02/24/25 11:01 Chief Complaint: screening for colorectal cancer Narrative: 64-year-old woman presents for colonoscopy. Her last colonoscopy was 12 years ago. no fam hx colon cancer. occasional bright red blood per rectum. Review of Systems Review of Systems: All systems reviewed & are unremarkable except as noted in HPI and below Constitutional: Constitutional: Denies chills, Denies fever(s), Denies headache(s) and Denies weight loss Eyes: Eyes: Denies change in vision ENT: Denies dizziness, Denies headache(s), Denies neck mass and Denies throat swelling Cardiovascular: Cardiovascular: Denies chest pain, Denies lightheadedness and Denies dyspnea Respiratory: Respiratory: Denies cough, Denies dyspnea and Denies wheezing Gastrointestinal: Gastrointestinal: Denies abdominal pain, Denies change in bowel habits, Denies nausea and Denies vomiting Genitourinary: Genitourinary: Denies hematuria and Denies dysuria Musculoskeletal: Musculoskeletal: Reports as per HPI Integumentary/Breasts: Skin/Breast: Reports as per HPI Neurologic: Denies dizziness and Denies headache(s) Allergic/Immunologic: Allergic/Immunologic: Denies throat swelling and Denies wheezing [facility] Past Medical History Medical History Left ureteral calculus 02/2020 Nephrolithiasis Prediabetes Essential (primary) hypertension 12/18/2017 Dyslipidemia 12/18/2017 Surgical History Surgical History Hx of colonoscopy 01/2011 History of cystoscopy 02/21 - for left ureteral stone extraction [place] teeth extracted (~1981) Hx of section (~1979) 1989 Family History Family History Sibling , Descending artery was blocked Heart attack Family history of coronary artery disease Hypertension Mother Family history of aortic aneurysm Dementia Father FH: CABG (coronary artery bypass surgery) Social History Social History Smoking status: Never smoker Second hand tobacco smoke exposure: No Alcohol intake: never Drinks per week: 1 Alcohol use details: consumes 1 glass of wine weekly Substance use: never Substance use type: does not use Living arrangements: with family Gender identity (if verbalized by the patient): Female Sexual Orientation (if Verbalized by the Patient): Straight or Heterosexual Spiritual care concerns: No Meds Home Medications and Allergies Home Medications ?Medication ?Instructions ?Recorded ?Confirmed ?Type omega 3 35 mg-dha 25 mg-epa 5 2 tablet PO DAILY 11/04/20 02/24/25 History mg-fish oil 113.5 mg chewable tablet ([facility] [place]-3 Gummy Fish) lutein 20 mg capsule 20 mg PO DAILY 12/13/20 02/16/25 History chlorthalidone 25 mg tablet 25 mg PO DAILY #90 tabs 09/15/24 02/24/25 Rx blood sugar diagnostic (OneTouch #100 ea 09/30/24 01/20/25 Rx Verio test strips) blood-glucose meter (OneTouch #1 ea 09/30/24 01/20/25 Rx Verio Flex Start kit) lancets 31 gauge (Comfort Touch #100 ea 09/30/24 01/20/25 Rx Ultra Thin Lancets) metformin 500 mg tablet 500 mg PO BID 12/31/24 02/24/25 History atorvastatin 40 mg tablet 40 mg PO QPM #90 tabs 01/20/25 02/24/25 Rx glimepiride 1 mg tablet 1 mg PO QAM #90 tabs 01/20/25 02/24/25 Rx Allergies Allergy/AdvReac Type Severity Reaction Status Date / Time hydrochlorothiazide Allergy Swelling Verified 02/16/25 15:20 of Lip/Tongue/Throat lisinopril Allergy Swelling Verified 02/16/25 15:20 of Lip/Tongue/Throat Vital Signs Vital Signs - 24 hr 02/24/25 10:35 Temperature 97.6 F Pulse Rate 72 Respiratory Rate 17 Blood Pressure 140/76 Pulse Oximetry 100 Oxygen Delivery Room Air Exam Const: General: no acute distress and alert Orientation/consciousness: patient oriented x3 HENMT: Head: normocephalic and atraumatic Ears: hearing grossly normal bilaterally Face/Nose/Sinus: Normal nares present Mouth: Yes Normal oral and palatal mucosa present Eyes: Periorbital: periorbital findings normal Sclera: sclerae normal EOM: EOMs intact bilaterally Neck: Neck: normal visual inspection, no lymphadenopathy and trachea midline Chest: Chest palpation & inspection: normal inspection of the chest Resp: Effort & Inspection: normal respiratory effort Auscultation: clear to auscultation bilaterally Cardio: Jugular venous distension: no JVD Rate: regular rate Rhythm: regular rhythm Heart sounds: S1 normal heart sound present and S2 normal heart sound present Peripheral pulses: Peripheral pulses 2+ throughout GI: Inspection: normal to inspection GI Palp: Yes Soft to palpation, No Tenderness to palpation present (GI), No Guarding due to palpation present (GI) and No Rebound tenderness present Percussion: Yes normal to percussion Auscultation: normal bowel sounds : General: Yes no CVA tenderness Back/Spine/Pelvis: Back: no CVA tenderness Neuro: General: patient oriented x3, no focal motor deficits and CN's II-XI intact bilaterally Cognition (Neuro): normal cognition Speech: normal speech Motor exam (neuro): 5/5 motor strength present throughout Extrem: General: capillary refill normal and no clubbing, cyanosis or edema Assessment and Plan Assessment and plan (1) Screening for colon cancer: Code(s): Z12.11 - Encounter for screening for malignant neoplasm of colon Status: Acute Assessment and Plan: I have recommended colonoscopy. I have discussed the procedure, risks, benefits, and alternatives. Questions were answered. Patient is agreeable to proceed.
--- NOTE | 2025-02-24 11:18 | S_PTH ---
PATIENT: Jazzmine Keyes LOC: [facility] U#:[id number] AGE/SX: 64/F ROOM: RE02/24/[address]: Crescencio Alexander DO : 1960 BED: DIS: 02/24/2025 SPEC #: [id number] RECD: 02/24/25 11:20 STATUS: MARCIE REGoyo #: [id number] DAYDAY: 02/24/25 11:[address]: Crescencio Alexander DEPT: [facility] Surgical RECD BY: May Arana ENTERED: 02/24/25 11:20 SP TYPE: Surgical OTHR DR: Jolly Saleh DO Tissues: A - Rectal Polyp Procedures: Hematoxylin and Eosin Stain Gross and Microscopic Level 4
[2025-02-24 11:20] VITALS: BP 108/67; PULSE 57; RESP 11; O2SAT 98
[2025-02-24 11:30] VITALS: BP 115/76; PULSE 67; RESP 15; O2SAT 98
[2025-02-24 11:40] VITALS: BP 132/69; PULSE 78; RESP 18; O2SAT 99
== END 2025-02-24 12:02 | disposition home or self-care (01) ==
PROVIDERS: PCP Family Medicine; Visit Provider Surgery
PROC: 0DJD8ZZ Inspection of Lower Intestinal Tract, Via Natural or Artificial Opening Endoscopic (ICD-10-PCS; CPT 45378; principal; 2025-02-24 11:30)
DX: Z12.11 Encounter for screening for malignant neoplasm of colon (principal); D12.8 Benign neoplasm of rectum; K64.8 Other hemorrhoids; I10 Essential (primary) hypertension; E78.5 Hyperlipidemia, unspecified; R73.03 Prediabetes
CPT/HCPCS: 45380; 82948; 88305; J7120